=== PATIENT | female | born 1945 | race Caucasian/White ===

== ENCOUNTER 2019-09-05 20:48 | Inpatient (IN) | payer MEDICARE, OTHER, SELFPAY ==
--- NOTE | ~2019-09-05 | CT_ITS ---
EXAMINATION: CT abdomen pelvis w con DATE: 09/05/2019 23:16 INDICATION: Diarrhea. Abdominal pain. History of colitis. TECHNIQUE: Computed tomography (CT) of the abdomen and pelvis was performed with 100 cc Omnipaque 350 intravenous contrast. Automated exposure control and iterative reconstruction technique were employe d. Exam dose: 330.34 mGy-cm total exam DLP. COMPARISON: None. FINDINGS: There is mild discoid atelectasis in both lower lobes. No pulmonary consolidation. Normal heart size. No pericardial or pleural effusion. There are calcified hepatic and splenic granulomas consistent with old granulomatous disease. No hepatic, splenic, pancreatic, and adrenal or renal space-occupying mass lesion is evident. No renal mass lesion. No urinary tract calculus or hydroureteronephrosis. Normal caliber of the abdominal aorta, with atherosclerotic calcification. No abdominal aortic aneury sm or any apparent dissection. No intraperitoneal or retroperitoneal or pelvic mass lesion or adenopa thy or ascites. Shotty nonenlarged retroperitoneal lymph nodes and mildly prominent upper abdominal mesenteric lymph nodes, likely reactive. The appendix is not visualized. No evidence of appendicitis. The uterus and adnexal areas and urinary bladder are unremarkable. There is degenerative change at the apophyseal joints particularly in the lower lumbar and lumbosacra l area with associated grade 1 anterolisthesis at L4-5. Degenerative spurring of the lower thoracic s pine in particular and to a lesser extent at the lumbar spine. No suspicious osteolytic or osteoblast ic lesions. There are fluid levels in the colon, an abnormal finding in the absence of any recent enemas. There i s mild colonic wall thickening and pericolic fat stranding from the cecum to the distal transverse co vanesa, consistent with mild colitis. No pneumatosis or perforation or abscess. No significant ascites. No bowel obstruction or intraperitoneal free air is detected. 1.9 x 2.7 cm probably calcified stone is noted at the gallbladder neck. There is mild to moderate gal lbladder distention but the wall thickness appears within normal range. There is minimal if any peric holecystic fat stranding. No bile duct or pancreatic duct dilatation. IMPRESSION: Colitis Cholelithiasis Reviewed, dictated and finalized at [facility]. Reviewed, dictated and finalized at location A. IMPRESSION: Colitis Cholelithiasis
--- NOTE | ~2019-09-05 | XR_ITS ---
XR chest 1V portable DATE: 09/05/2019 23:17 INDICATION: Cough, fever TECHNIQUE: Portable AP chest on 09/05/2019 at 2315 hours COMPARISON: None FINDINGS: There is discoid atelectasis or scarring in both lung bases. The lungs otherwise appear sarah ar. No pleural effusion or pulmonary vascular congestion or pneumothorax. Heart size appears within n ormal range. Old fracture deformity of the proximal right humerus. There is bilateral excretion of contrast material by the kidneys. IMPRESSION: Bilateral basilar discoid atelectasis or scarring Reviewed, dictated and finalized at location A.
--- NOTE | ~2019-09-05 | XR_ITS ---
EXAMINATION: XR foot RT 2V INDICATION: Swelling and generalized pain of the right foot TECHNIQUE: Two views of the right foot are obtained. COMPARISON: None available FINDINGS: There is no fracture, dislocation, or subluxation. Dorsal and plantar calcaneal osteophytes are noted. There is mild osteoarthritis of the midfoot. IMPRESSION: 1. No acute osseous abnormality. Reviewed, dictated and finalized at location A.
--- NOTE | ~2019-09-05 | US_ITS ---
EXAMINATION: US venous doppler [facility] DATE: 09/08/2019 13:09 INDICATION: Lower limb swelling TECHNIQUE: Grayscale ultrasound images without and with compression and Doppler ultrasound images of the bilateral lower extremity veins were obtained. COMPARISON: None. FINDINGS: Noncompressible deep venous thrombosis below the right knee in the right soleal vein and one of the p aired peroneal veins. The visualized portions of right common femoral vein, profunda (deep) femoral v ein, femoral vein, popliteal vein, posterior tibial veins, gastrocnemius vein and greater saphenous v ein outflow are patent. Noncompressible deep venous thrombosis below the left knee in both the paired peroneal veins. The vis ualized portions of left common femoral vein, profunda femoral vein, femoral vein, popliteal vein, pe roneal veins, gastrocnemius vein and greater saphenous vein outflow are patent. IMPRESSION: 1. Bilateral [id number]-blub deep venous thrombosis in the right soleus vein and one of the paired ri ght peroneal veins and in both the paired left peroneal veins. Findings were discussed with Jessica dudley, the nurse caring for the patient, at 1:25 PM. Reviewed, dictated and finalized at location A. IMPRESSION: 1. Bilateral [id number]-[id number] deep venous thrombosis in the right soleus vein an d one of the paired right peroneal veins and in both the paired left peroneal v eins. Findings were discussed with Jessica Resendez, the nurse caring for the pat ient, at 1:25 PM.
--- NOTE | ~2019-09-05 | US_ITS ---
US right upper quadrant DATE: 09/07/2019 09:25 INDICATION: Abdominal pain for 4 months TECHNIQUE: Real-time imaging of liver, pancreas, gallbladder areas COMPARISON: 09/05/2019 CT abdomen pelvis FINDINGS: There is a 2.9 cm stone in the dependent aspect of the gallbladder, without shadowing. The gallbladder wall measures up to 2.3 mm, which is within normal limits. No pericholecystic abnormal fl uid collection. No hepatic or pancreatic space-occupying mass lesion is identified. Normal hepatic portal venous flow direction. No intrahepatic or extrahepatic bile duct dilatation is detected. The common bile duct measures 3.8 m m. IMPRESSION: Cholelithiasis Reviewed, dictated and finalized at [facility]. Reviewed, dictated and finalized at location A. IMPRESSION: Cholelithiasis
[2019-09-05 20:54] VITALS: BP 136/65; PULSE 99; RESP 18; TEMP 37.8; O2SAT 100
--- NOTE | 2019-09-05 22:11 | ED.GENADULT ---
HPI - General Adult General Chief complaint: Unspecified Stated complaint: abd pain History of Present Illness HPI narrative: Patient presents with her daughter for multiple complaints. First she complains that her right foot is swollen it was wrapped by the phytochemistry professor 4 days ago and they took off the wrapping for us to see here, and now it is less swollen and less tender there is no redness. She says she supposed to get a boot next week to help her walk. Second she complains of her fever 103.1 at home. She has had a dry cough for 3 or 4 months, it seems to have gotten worse since she was diagnosed with colitis 1 to 2 months ago. #3 she has diarrhea 3-4 bowel movements a day, despite the medicine the GI doctor has her on to control the colitis. There is no blood in her stool. She urinates when she has the diarrhea, but has no symptoms with the bladder. The pain in her abdomen is 8 out of 10 and is primarily beneath the waistline right to left. The pain is getting worse in the last month. Her appetite is poor and she is losing weight. Related Data Allergies Allergy/AdvReac Type Severity Reaction Status Date / Time No Known Allergies Allergy Verified 09/05/19 23:13 Review of Systems Review of Systems: Narrative: CONSTITUTIONAL: Denies chills, or sweats. EYES: Denies visual changes, redness, or discharge. ENT: Denies rhinorrhea, congestion, sore throat, or otalgia. CARDIOVASCULAR: Denies chest pain, palpitations, or edema. RESPIRATORY: Denies dyspnea. GASTROINTESTINAL: Denies nausea, vomiting GENITOURINARY: Denies dysuria or hematuria. SKIN: Denies rash or itching. MUSCULOSKELETAL: Denies back pain, joint pain, or myalgia.She does have right foot pain and swelling. NEUROLOGIC: Denies headache, numbness, or weakness. PSYCHIATRIC: Denies anxiety or depression. All systems reviewed & are unremarkable except as noted in HPI and below PMFSH Social History Social History (Updated 09/05/19 @ 22:15 by Jenna Davalos MD) Smoking status: Never smoker Alcohol intake: never Substance use: never Gender identity (if verbalized by the patient): Female Exam Narrative: Exam Narrative: GENERAL: Well-appearing, well-nourished, and in no acute distress. HEAD: Normocephalic, atraumatic. EYES: PERRLA and EOMI. ENT: Nares clear, no rhinorrhea or epistaxis. Mucous membranes moist. NECK: Supple. CHEST: Clear to auscultation. No respiratory distress. HEART: Regular rate and rhythm. No murmur heard. Normal peripheral pulses. ABDOMEN: Soft, nontender, nondistended, normal active bowel sounds. EXTREMITIES: Normal range of motion. Scant edema of the right foot, no redness, or lesions. Nontender. SKIN: Warm, dry, no rash. NEURO: No focal deficits. Alert and oriented x3. PSYCH: Normal mood and affect. Const: General: no acute distress and alert Orientation/consciousness: patient oriented x3 Course Reevaluation(s) Reevaluation #1: Went in to see the patient and her daughter, and explained about the new congestive heart failure diagnosis. She is very disappointed about that because she knows what it is. She is also disappointed to have been tested for COVID. The chest x-ray did not show pneumonia and I shared that good information with her. I suggested that she be admitted for the colitis since she is running a fever. I ordered the IV antibiotics and she agrees with the admission Date: 09/05/19 Time: 23:42 Consultations Consultation #1: Call Dr. schuster for admission for the colitis because there is fever with it also the COVID testing was done for the fever and the cough. Date: 09/05/19 Time: 23:40 Consultation #2: Dr. Dozier wants a GI consult specialist to be on the case for her to be transferred to her own application release manager. Her application release manager is in [place] and she is not very happy with him right now I suspect she will want a stay here. Date: 09/06/19 Time: 00:13 Vital Signs Vital signs: Vital Signs Temperature 100.0 F H 0
[2019-09-05] MEDS: SODIUM CHLORIDE 0.9% IV 1,000 ML 999 ML IV CONT (22:30)
[2019-09-05] MEDS: MORPHINE SULFATE 2 MG/ML INJ IV PUSH (22:30)
[2019-09-05 22:34] LABS: Basophils Absolute Auto 0.1 K/mm3 (0.0-0.1); Basophils Percent Auto 0.7 % (0.2-1.2); Eosinophils Percent Auto 0.3 % (0-4.4); Hematocrit 32.5 % (37.0-47.0); Hemoglobin 9.8 g/dL (12.0-15.0); Immature Granulocyte Absolute 0.04 K/mm3 (0.00-0.031); Immature Granulocyte Percent A 0.5 % (0-0.5); Lymphocytes Absolute Auto 0.98 K/mm3 (0.9-3.2); Lymphocytes Percent Auto 12.9 % (18.3-44.2); Mean Corpuscular HGB Conc 30.2 g/dl (32-36); Mean Corpuscular Hemoglobin 24.2 pg (26-34); Mean Corpuscular Volume 80.2 fl (80-100); Mean Platelet Volume 8.6 fl (7.4-10.4); Monocytes Absolute Auto 0.6 K/mm3 (0.1-0.6); Monocytes Percent Auto 7.3 % (2.6-8.5); Neutrophils Absolute Auto 5.9 K/mm3 (1.3-6.7); Neutrophils Percent Auto 78.3 % (45.5-73.1); Platelet Count Result 524 k/mm3 (150-375); Red Blood Count 4.05 M/mm3 (4.2-5.4); Red Cell Distribution Width 14.1 % (11.5-14.5); White Blood Count 7.6 K/mm3 (4.5-10.0)
[2019-09-05 22:45] LABS: Lactic Acid 0.8 mmol/L (0.7-2.1)
[2019-09-05 22:46] LABS: Alanine Aminotransferase 12 U/L (4-35); Albumin Level 3.6 g/dL (3.5-5.1); Alkaline Phosphatase 102 U/L (38-126); Aspartate Amino Transferase 22 U/L (14-36); Bilirubin,Total 0.5 mg/dL (0.2-1.3); Blood Urea Nitrogen 10 mg/dL (7-17); Calcium 7.8 mg/dL (8.4-10.2); Carbon Dioxide 26 mmol/L (22-30); Chloride 98 mmol/L (98-107); Estimated CRCL calculation 44 ml/min; Estimated Glomerular Filt Rate > 60; Glucose 115 mg/dL (65-105); Potassium 3.6 mmol/L (3.4-5.0); Sodium 130 mmol/L (137-145)
[2019-09-05 22:49] VITALS: BP 127/57; PULSE 110; RESP 23; TEMP 39.1; O2SAT 100
[2019-09-05 22:54] LABS: NT Pro B Type Natriuretic Pept 579 PG/ML (5-100)
[2019-09-05] MEDS: ACETAMINOPHEN 325 MG TABLET 650 MG PO (23:24)
[2019-09-05 23:41] VITALS: BP 139/93; PULSE 120; RESP 24; O2SAT 100
[2019-09-05] MEDS: metroNIDAZOLE 500 MG/ISO 100ML 500 MG/100 ML BAG 100 MG IVPB (23:59)
[2019-09-06] VITALS (9 sets, daily range): BP systolic 105–118; BP diastolic 48–53; PULSE 82–101; RESP 16–21; TEMP 36.6–38.7; O2SAT 96–99; BMI 22.9
[2019-09-06] MEDS: CIPROFLOXACIN 400 MG/D5W 200ML 200 ML 200 MG IVPB ×3 (00:52→22:05)
--- NOTE | 2019-09-06 01:49 | ADMGEN ---
This patient, Yelitza Álvarez, was admitted to 3 [facility] Surg Room 327-01. Patient/family oriented to hospital policies and general routines including ID bracelet, bed and alarms, visiting hours, pain management, procedures, bathroom and other care routines, personal items, smoking policy, room service/diet, and visiting hours. Valuables list has been completed. Information on how to activate the Rapid Response Team has been discussed. Patient/Family are encouraged to report perceived risks to care and to ask questions if they do not understand what they are told or what they should do.
[2019-09-06] MEDS: metroNIDAZOLE 500 MG/ISO 100ML 500 MG/100 ML BAG 100 MG IVPB ×3 (06:28→23:51)
[2019-09-06 07:46] LABS: Add Urine Microscopic? YES; Appearance Urine Clear (Clear); Bilirubin Urine Negative (Negative); Blood Urine Negative (Negative); Color Urine Yellow (Yellow); Glucose Urine UA Negative (Negative); Ketones Urine Negative (Negative); Leukocyte Esterase Ur Negative LEU/UL (Negative); Mucus Urine Rare /lpf; Nitrate Urine Negative (Negative); Protein Urine 1+ mg/dL (Negative); RBC Urine 0-2 /hpf (0-2); Squamous Epithelial Cell Urine Few /hpf (Few); Urobilinogen Urine Negative mg/dL (<2.0); WBC Urine 0-3 /hpf
[2019-09-06 07:51] LABS: Specific Grav Ur 1.055 (1.001-1.035)
--- NOTE | 2019-09-06 08:27 | PM.IMHP ---
H&P: HPI History of Present Illness Chief complaint: colitis Narrative: Yelitza Álvarez is a 74 year old female with a PMH significant for ulcerative colitis, RAUL, and CKD3 who presented to the ED on 09/05/19 from home with complaints of right foot swelling, fever, diarrhea, and dry cough. She reports that she has had a dry cough ongoing for 3-4 months now which has worsened the past week. She noted that she had a fever of 103F at home 2 days ago. Additionally, she complains of diarrhea ongoing for 2 days and has had 1 episode of diarrhea today. She is having large volume brown stools with foul odor. She denies melena or hematochezia. She has associated abdominal cramping and bloating. She also has had 2 episodes of vomiting today after attempting clear liquids. She was recently diagnosed with UC 1 month ago after a colonoscopy and biopsy performed by her GI Dr. Martines who practices in [place]. She believes she has lost approximately 10-12 pounds in the past 1-2 months unintentionally. Regarding her right foot, she complained of swelling for approximately 1-2 weeks with pain that felt like a sledgehammer hitting her foot. She was evaluated by a gourmet coffee attendant who recommended she keep it wrapped and she tells me she was going to begin wearing a walking boot. This foot pain has caused her to become more weak and fatigued and she has now been using a walker around the house. She denies chest pain, SOB, or orthopnea. She is able to climb a flight of stairs without difficulty. She denies any additional arthralgia or myalgia. Denies headache, confusion, congestion dysphagia, decreased appetite, bleeding, bruising, dysuria, or hematuria. Review of Systems Review of Systems: Narrative: A 12 point review of systems was performed with pertinent positives and negatives as per HPI. [facility] Past Medical History Medical History (Updated 09/06/19 @ 16:42 by Charline Maravilla PA-C) Chronic kidney disease GERD (gastroesophageal reflux disease) Hyperlipidemia Hyponatremia Iron deficiency anemia Mild intermittent asthma Nausea and vomiting in adult Obstructive sleep apnea Osteoporosis Ulcerative colitis Surgical History Surgical History (Updated 09/06/19 @ 12:11 by Charline Maravilla PA-C) H/O shoulder surgery Right shoulder History of knee replacement Bilateral History of tonsillectomy History of tubal ligation Family History Family History (Updated 09/06/19 @ 16:20 by Charline Maravilla PA-C) Mother , 89 Breast cancer Father Acute myocardial infarction Daughter Crohn's disease Social History Social History (Updated 09/06/19 @ 12:13 by Charline Maravilla PA-C) Social History: Ms. Álvarez lives alone at home with her 2 cats. She has 5 children. She drives and is independent in her ADLs. She designates her daughter, Nancy, as her surrogate decision maker. She would like to be a full code. Smoking packs per day: 0.5 Smoking cigarettes per day: 10.0 Years smoked: 12 Smoking pack-years: 6.00 Smoking status: Former smoker Tobacco type: cigarettes Alcohol intake: former Alcohol use details: Former social alcohol use Substance use: never Living arrangements: alone Gender identity (if verbalized by the patient): Female Spiritual care concerns: No Agree to blood products: Yes Meds Home Medications and Allergies Home Medications Medication Instructions Recorded Confirmed Type albuterol sulfate [ProAir HFA] 2 puff INHALATION QID PRN 09/06/19 09/06/19 History atorvastatin 20 mg PO HS 09/06/19 09/06/19 History ergocalciferol (vitamin D2) 50,000 unit PO WEEKLY 09/06/19 09/06/19 History [Vitamin D2] lifitegrast [Xiidra] 1 drp OPHTHALMIC (EYE) Q12H 09/06/19 09/06/19 History lisinopril 20 mg PO DAILY 09/06/19 09/06/19 History mesalamine 1.2 g PO ACHS 09/06/19 09/06/19 History omeprazole 20 mg PO DAILY 09/06/19 09/06/19 History Allergies Allergy/AdvReac Type Severity Reaction St
[2019-09-06 10:47] LABS: Basophils Absolute Auto 0.1 K/mm3 (0.0-0.1); Basophils Percent Auto 0.8 % (0.2-1.2); Eosinophils Percent Auto 0.1 % (0-4.4); Hemoglobin 8.5 g/dL (12.0-15.0); Immature Granulocyte Absolute 0.05 K/mm3 (0.00-0.031); Immature Granulocyte Percent A 0.6 % (0-0.5); Lymphocytes Absolute Auto 1.37 K/mm3 (0.9-3.2); Lymphocytes Percent Auto 15.3 % (18.3-44.2); Mean Corpuscular HGB Conc 30.4 g/dl (32-36); Mean Corpuscular Hemoglobin 24.2 pg (26-34); Mean Corpuscular Volume 79.8 fl (80-100); Mean Platelet Volume 8.2 fl (7.4-10.4); Monocytes Absolute Auto 0.7 K/mm3 (0.1-0.6); Monocytes Percent Auto 7.3 % (2.6-8.5); Neutrophils Absolute Auto 6.8 K/mm3 (1.3-6.7); Neutrophils Percent Auto 75.9 % (45.5-73.1); Platelet Count Result 414 k/mm3 (150-375); Red Blood Count 3.51 M/mm3 (4.2-5.4); Red Cell Distribution Width 14.3 % (11.5-14.5)
[2019-09-06 11:30] LABS: Alanine Aminotransferase 11 U/L (4-35); Albumin Level 2.9 g/dL (3.5-5.1); Alkaline Phosphatase 67 U/L (38-126); Aspartate Amino Transferase 15 U/L (14-36); Bilirubin,Total 0.5 mg/dL (0.2-1.3); Blood Urea Nitrogen 9 mg/dL (7-17); CRP 15.2 mg/dL (<1.0); Calcium 6.8 mg/dL (8.4-10.2); Carbon Dioxide 24 mmol/L (22-30); Chloride 99 mmol/L (98-107); Creatine Kinase < 20 U/L (30-135); Estimated CRCL calculation 49 ml/min; Estimated Glomerular Filt Rate > 60; Glucose 124 mg/dL (65-105); Lactate Dehydrogenase 260 U/L (313-618); Potassium 3.6 mmol/L (3.4-5.0); Sodium 131 mmol/L (137-145)
[2019-09-06 11:51] LABS: Ovalocytes 1+ (NORMAL); Platelet Estimate Adequate (Adequate)
--- NOTE | 2019-09-06 12:25 | ECG_ITS ---
Measurements Intervals [place] Rate: 104 P: 39 MI: 139 QRS: 1 QRSD: 79 T: 33 QT: 334 QTc: 440 Interpretive Statements SINUS TACHYCARDIA BASELINE ARTIFACT- V3 BORDERLINE ECG Electronically Signed On 09-06-2019 13:39:00 CDT by Boris Romero D.O.
[2019-09-06 12:51] LABS: Uric Acid 3.6 mg/dL (2.5-7.5)
[2019-09-06] MEDS: PROMETHAZINE HCL 25 MG/ML AMPUL 12.5 MG IV PUSH (12:52)
[2019-09-06] MEDS: SODIUM CHLORIDE 0.9% IV 1,000 ML 70 ML IV CONT (12:52)
--- NOTE | 2019-09-06 13:31 | WPDGICN ---
Assessment and Plan Assessment and plan (1) Colitis: Code(s): K52.9 - Noninfective gastroenteritis and colitis, unspecified Status: Acute Assessment and Plan: she was diagnosed with UC a month ago, now she is more symptomatic. Stool sample pending, continue with iv antibiotics, add iv steroids for possible flare. Also need to rule out COVID given fever and respiratory symptoms, pending result. get records from her GI doctor patient has never used immunomodulators or biologics for UC, she prefers to hold off (daughter with Crohn's disease on stelara) (2) Fever: Qualifiers: Fever type: unspecified Qualified Code(s): R50.9 - Fever, unspecified Code(s): R50.9 - Fever, unspecified Status: Acute (3) Persistent dry cough: Code(s): R05 - Cough Status: Acute (4) Iron deficiency anemia: Qualifiers: Iron deficiency anemia type: unspecified iron deficiency Qualified Code(s): D50.9 - Iron deficiency anemia, unspecified Code(s): D50.9 - Iron deficiency anemia, unspecified Status: Acute Assessment and Plan: no signs of bleeding andcould be from acute on chronic disease, continue to monitor (5) Suspected COVID-19 virus infection: Code(s): R68.89 - Other general symptoms and signs Status: Acute (6) Chronic kidney disease: Qualifiers: Chronic kidney disease stage: stage 3 (moderate) Qualified Code(s): N18.3 - Chronic kidney disease, stage 3 (moderate) Code(s): N18.9 - Chronic kidney disease, unspecified Status: Acute Assessment and Plan: monitor renal function, supportive care, creatinine 0.8 (7) Hyponatremia: Code(s): E87.1 - Hypo-osmolality and hyponatremia Status: Acute (8) Nausea and vomiting in adult: Code(s): R11.2 - Nausea with vomiting, unspecified Status: Acute GI Consult Note Consult date/time: 09/06/19 13:31 Reason for consult: colitis, diarrhea, n/v, fever HPI: Yelitza Álvarez is a 74 year old female with past medical history of ulcerative colitis diagnosed about 1 month ago by a nuclear medicine officer in [facility] with colonoscopy and bx, started on mesalamine without much of improvement, also RAUL, and CKD3 who came to ED with right foot swelling, worsening diarrhea (ongoing since early this year but worse recently, no bleeding) and fever for 2 days up to 103F. She also has this dry cough for several weeks. ER evaluation showed colitis, also cholelithiasis with mild-moderate distension of GB. She was given antibitiocs, stool sample pending. Noted hb 9, normal wbc with platelets 450, elevated crp 15, normal liver enzymes. She had vomiting after tried clear liquid diet, still feels sick and persistent diarrhea. Her daughter has Crohn's [facility] Review of Systems Constitutional: Constitutional: Reports chills, Reports fatigue, Reports fever(s) and Reports lethargy Eyes: Eyes: Denies blurry vision ENT: Reports Normal hearing present, Denies headache(s) and Denies neck pain Cardiovascular: Cardiovascular: Denies chest pain and Denies dyspnea Respiratory: Respiratory: Reports cough Gastrointestinal: Gastrointestinal: Reports abdominal pain, Reports diarrhea and Reports nausea Genitourinary: Genitourinary: Denies dysuria Musculoskeletal: Musculoskeletal: Denies neck pain Integumentary/Breasts: Skin/Breast: Denies dry skin Neurologic: Reports Normal hearing present, Denies confusion and Denies weakness Psychiatric: Psychiatric: Denies anxiety Endocrine: Endocrine: Denies change in body appearance Hematologic/Lymphatic: Hematologic/Lymphatic: Denies easy bleeding Allergic/Immunologic: Allergic/Immunologic: Denies urticaria PMFSH Past Medical History Medical History (Updated 09/06/19 @ 13:48 by Garcia Otoole MD) Chronic kidney disease GERD (gastroesophageal reflux disease) Hyperlipidemia Hyponatremia Iron deficiency anemia Mild intermittent asthm
[2019-09-06 13:55] LABS: SARS-CoV-2 RNA PCR Negative
--- NOTE | 2019-09-06 14:00 | PC.NURSE ---
Covid testing negative - isolation dced after reviewed with Opal Lino and notified.
--- NOTE | 2019-09-06 14:25 | PC.NURSE ---
Notified [facility] that patient is negative for COVID. No new orders were obtained.
[2019-09-06] MEDS: methylPREDNISolone SOD SUCC 40 MG VIAL IV PUSH ×2 (14:45→21:49)
[2019-09-06] MEDS: ACETAMINOPHEN 325 MG TABLET 650 MG PO (18:23)
[2019-09-06 19:30] LABS: Glucose Point of Care 91 (65-105)
[2019-09-06 21:32] LABS: IFOB Positive Control Positive; Immunochemical Fecal Occult Bl Negative (N)
[2019-09-06] MEDS: ATORVASTATIN 20 MG TABLET PO (21:49)
[2019-09-07] VITALS (8 sets, daily range): BP systolic 103–149; BP diastolic 55–72; PULSE 72–113; RESP 16–24; TEMP 36.2–36.9; O2SAT 95–100
[2019-09-07 00:35] LABS: Glucose Point of Care 153 (65-105)
[2019-09-07] MEDS: SODIUM CHLORIDE 0.9% IV 1,000 ML 70 ML IV CONT (06:02)
[2019-09-07 06:30] LABS: Hematocrit 28.5 % (37.0-47.0); Hemoglobin 8.7 g/dL (12.0-15.0); Immature Granulocyte Absolute 0.04 K/mm3 (0.00-0.031); Immature Granulocyte Percent A 0.7 % (0-0.5); Lymphocytes Absolute Auto 0.84 K/mm3 (0.9-3.2); Lymphocytes Percent Auto 15.7 % (18.3-44.2); Mean Corpuscular HGB Conc 30.5 g/dl (32-36); Mean Corpuscular Hemoglobin 24.2 pg (26-34); Mean Corpuscular Volume 79.2 fl (80-100); Mean Platelet Volume 8.1 fl (7.4-10.4); Monocytes Absolute Auto 0.2 K/mm3 (0.1-0.6); Monocytes Percent Auto 3.2 % (2.6-8.5); Neutrophils Absolute Auto 4.3 K/mm3 (1.3-6.7); Neutrophils Percent Auto 80.4 % (45.5-73.1); Platelet Count Result 393 k/mm3 (150-375); Red Cell Distribution Width 14.3 % (11.5-14.5); White Blood Count 5.4 K/mm3 (4.5-10.0)
[2019-09-07] MEDS: methylPREDNISolone SOD SUCC 40 MG VIAL IV PUSH ×3 (06:39→22:53)
[2019-09-07 06:47] LABS: Alanine Aminotransferase 9 U/L (4-35); Albumin Level 2.9 g/dL (3.5-5.1); Alkaline Phosphatase 68 U/L (38-126); Aspartate Amino Transferase 14 U/L (14-36); Bilirubin,Total 0.3 mg/dL (0.2-1.3); Blood Urea Nitrogen 11 mg/dL (7-17); Calcium 7.1 mg/dL (8.4-10.2); Carbon Dioxide 27 mmol/L (22-30); Chloride 104 mmol/L (98-107); Estimated CRCL calculation 49 ml/min; Estimated Glomerular Filt Rate > 60; Glucose 131 mg/dL (65-105); Potassium 4.2 mmol/L (3.4-5.0); Sodium 138 mmol/L (137-145)
[2019-09-07] MEDS: metroNIDAZOLE 500 MG/ISO 100ML 500 MG/100 ML BAG 100 MG IVPB ×3 (07:31→22:53)
[2019-09-07 07:39] LABS: Glucose Point of Care 123 (65-105)
[2019-09-07 07:59] LABS: Anisocytosis 1+ (NORMAL); Hypochromasia 1+ (NORMAL); Ovalocytes 1+ (NORMAL)
[2019-09-07] MEDS: CIPROFLOXACIN 400 MG/D5W 200ML 200 ML 200 MG IVPB ×2 (09:34→21:33)
[2019-09-07] MEDS: FAMOTIDINE 20 MG/2 ML VIAL IV PUSH ×2 (09:35→21:33)
[2019-09-07] MEDS: ENOXAPARIN 40 MG/0.4 ML SYRINGE SUB-Q (09:35)
--- NOTE | 2019-09-07 12:26 | WPDGIPROGNO ---
Progress Note: A&P Assessment and Plan (1) Ulcerative colitis: Qualifiers: Ulcerative colitis location: unspecified ulcerative colitis location Digestive disease complication type: unspecified complication Qualified Code(s): K51.919 - Ulcerative colitis, unspecified with unspecified complications Code(s): K51.90 - Ulcerative colitis, unspecified, without complications Status: Acute Assessment and Plan: presentation consistent with UC flare, she is doing much better after I added iv steroids. Most likely she will need slow taper of steroids continue with antibiotics, stool sample result pending blood cx ngtd will get TPMT activity- she may need imuran, patient says that has been on mesalamine 1.2g x4 daily and still symptomatic. She may even need biologics therefore I will check also serology for HBV and TB. Another consideration could be entyvio. Interestingly her daughter has Crohn's that required surgery, failed remicade and humira and now she is on stelara. pending records from recent colonoscopy about 1 month ago she would like to establish care with me after she leaves the hospital insted of [place] (2) Nausea and vomiting in adult: Code(s): R11.2 - Nausea with vomiting, unspecified Status: Acute Assessment and Plan: resolved, much better ok to advance diet (3) Iron deficiency anemia: Qualifiers: Iron deficiency anemia type: unspecified iron deficiency Qualified Code(s): D50.9 - Iron deficiency anemia, unspecified Code(s): D50.9 - Iron deficiency anemia, unspecified Status: Acute (4) Chronic kidney disease: Qualifiers: Chronic kidney disease stage: stage 3 (moderate) Qualified Code(s): N18.3 - Chronic kidney disease, stage 3 (moderate) Code(s): N18.9 - Chronic kidney disease, unspecified Status: Acute Assessment and Plan: renal function stable (5) Fever: Qualifiers: Fever type: unspecified Qualified Code(s): R50.9 - Fever, unspecified Code(s): R50.9 - Fever, unspecified Status: Acute Assessment and Plan: no more for 24 hours (6) Cholelithiasis: Qualifiers: Cholelithiasis location: gallbladder Cholecystitis presence: without cholecystitis Biliary obstruction: without biliary obstruction Qualified Code(s): K80.20 - Calculus of gallbladder without cholecystitis without obstruction Code(s): K80.20 - Calculus of gallbladder without cholecystitis without obstruction Status: Acute Assessment and Plan: large stone but normal GB otherwise, no cholecystitis, no edema, no ruq pain and most likely UC is cause of presentation. Probably she can surgeon as outpatient Subjective Date/time seen: 09/07/19 12:26 Interval history: today she is doing much better with less diarrnea and no more nausea, good spirits. COVID-19 negative. Afebrile for 24 hours ago Review of Systems Review of Systems: All systems reviewed & are unremarkable except as noted in HPI and below Exam Const: General: comfortable and no acute distress HENMT: General nose exam: Normal nares present Eyes: General: appearance normal, both eyes and all related structures Neck: Neck: no JVD Resp: Auscultation: clear to auscultation bilaterally Cardio: Rate: regular rate Rhythm: regular rhythm GI: Inspection: non-distended GI Palp: Yes Soft to palpation Skin: General skin exam: normal color Neuro: General: gait normal Speech: normal speech Extrem: General: normal to inspection Psych: Mental Status: mental status grossly normal Objective Data Vital Signs Vital Signs: Vital Signs - 24 hr 09/06/19 16:00 09/06/19 18:23 09/06/19 20:07 Temperature 99.5 F 99.8 F H 98.4 F Pulse Rate 101 H Respiratory Rate 18 Blood Pressure 113/48 L Pulse Oximetry 97 09/06/19 22:00 09/06/19 22:20 09/07/19 02:00 Temperature 97.8 F 97.3 F L Pulse Rate 85 82
--- NOTE | 2019-09-07 13:00 | ECHO_ITS ---
Patient Info Name: Yelitza Álvarez Age: 74 years : 1945 Gender: Female Ht: 66 in Wt: 143 lbs BSA: 1.74 m2 HR: 105 bpm BP: 130 / 63 mmHg Heart Rhythm: Tachycardia Technical Quality: Good Exam Date: 09/07/2019 2:01 PM Exam Location: [facility] Patient Status: Inpatient Admit Date: 09/07/2019 Staff Ordering Physician: Anais Marcelo PA-C Spring Assembler: Ronald Mancilla RDCS Attending Provider: Anais Marcelo PA-C Referring Physician: Fozia GARCIA; Exam Type: CA echo doppler color flow Study Info Indications I50.9 - Heart failure, unspecified Complete two-dimensional, color flow and Doppler transthoracic echocardiogram is performed. Strain analysis performed. History/Risk Factors Elevated BNP w/ concern for CHF: Fever, CKD3. Summary 1. Left ventricular chamber dimension is normal. 2. Left ventricular systolic function is normal, estimated at 60-65%. 3. The left ventricular diastolic function is grade I diastolic dysfunction. 4. E/e' 8 is minimally elevated. 5. Global longitudinal strain is normal at -19.4%. 6. Left atrial chamber dimension is mildly enlarged. 7. There is trace tricuspid valve regurgitation. 8. Moderate pulmonary hypertension, estimated pulmonary arterial systolic pressure is 51 mmHg. Left Ventricle E/e' 8 is minimally elevated. Global longitudinal strain is normal at -19.4%. Left ventricular chamber dimension is normal. Left ventricular systolic function is normal, estimated at 60-65%. The left ventricular diastolic function is grade I diastolic dysfunction. Right Ventricle Right ventricular chamber dimension is normal. Right ventricular systolic function is normal. Left Atria Left atrial chamber dimension is mildly enlarged. Right Atria Right atrial chamber dimension is normal. Aortic Valve The aortic valve is trileaflet. There is no aortic valve stenosis. There is no aortic valve regurgitation. Pulmonic Valve There is trace pulmonic regurgitation. Mitral Valve There is no mitral valve stenosis. There is no mitral valve regurgitation. Tricuspid Valve There is trace tricuspid valve regurgitation. Moderate pulmonary hypertension, estimated pulmonary arterial systolic pressure is 51 mmHg. Pericardium/Pleural There is no pericardial effusion. Inferior Vena Cava Normal inferior vena cava with >50% collapse upon inspiration consistent with normal right atrial pressure, 5 mmHg. Aorta The aortic root size at the sinus of Valsalva is normal. Left Ventricular Outflow Tract Name Value Normal LVOT 2D LVOT Diameter 2.0 cm LVOT Doppler LVOT Peak Gradient 12 mmHg LVOT Mean Gradient 5 mmHg LVOT VTI 26 cm LVOT VTI/AV VTI Ratio 0.9 LVOT Stroke Volume 81 ml LVOT CO 9.1 l/min LVOT CI 5.2 l/min/m2 Mitral Valve Name
--- NOTE | 2019-09-07 13:04 | PM.IMPN ---
Progress Note: A&P Assessment and Plan (1) Ulcerative colitis: Qualifiers: Ulcerative colitis location: unspecified ulcerative colitis location Digestive disease complication type: unspecified complication Qualified Code(s): K51.919 - Ulcerative colitis, unspecified with unspecified complications Code(s): K51.90 - Ulcerative colitis, unspecified, without complications Status: Acute Assessment and Plan: The patient's clinical picture suggests ulcerative colitis. Dr. Wagoner is on board. Her sx have improved significantly with IV steroids. Plan for follow-up with Dr. Wagoner outpatient Pt is currently on IV steroids with significant improvement and will likely need slow steroid taper per Dr. Wagoner She has remained symptomatic despite mesalamine so she will have additional lab testing in consideration for imuran vs entyvio Records are pending from her previous colonoscopy (2) Colitis: Code(s): K52.9 - Noninfective gastroenteritis and colitis, unspecified Status: Acute Assessment and Plan: She was diagnosed with ulcerative colitis approximately 1 month ago by biopsy. Colitis evident on CT. Her clinical picture suggests a UC flare. Her sx have improved significantly with the addition of IV steroids. IFOB was negative. Stool cultures were negative for cryptosporidium and giardia. GDH antigen was detected but toxin A and B were not detected. C. diff PCR testing is pending. Campylobacter, salmonella/shigella, and Ecoli 0157 are pending. WBC is 5.4. IFOB was negative. Blood cultures reveal NGTD. Dr. Wagoner is on board and started IV steroids yesterday. The pateint's symptoms have improved significantly. Continue Cipro and Flagyl empirically Await final stool cultures including C. diff PCR as GDH antigen was detected. (3) CHF with unknown LVEF: Code(s): I50.9 - Heart failure, unspecified Status: Acute Assessment and Plan: At presentation, there was concern for CHF, possibly given prolonged dry cough. CXR reveals no cardiomegaly. BNP is elevated at 579. The pt has no other sx to suggest CHF but she is very concerned about this diagnosis and has requested confirmatory testing. Will order echo (4) Obstructive sleep apnea: Code(s): G47.33 - Obstructive sleep apnea (adult) (pediatric) Status: Acute Assessment and Plan: Patient has a history of sleep apnea and uses CPAP regularly. 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 Hanson. Her baseline is unknown. Cr is stable at 0.8 today. Continue to monitor kidney function Renally dose medications and avoid nephrotoxic agents (6) Foot pain, right: Code(s): M79.671 - Pain in right foot Status: Acute Assessment and Plan: Notes right foot swelling and pain for 1-2 weeks. Evaluated by veterinary toxicologist and wrapped for compression to reduce inflammation. Denies trauma or injury. Right foot xray revealed mild osteoarthritis of the midfoot without fracture, disclocation, or subluxation. Dorsal and plantar calcaneal osteophytes were present. Her pain and swelling improved significantly today. She is able to bear weight without pain. Uric acid was WNL at 3.6 today. I suspect that her pain was due to osteoarthritis. Continue PT/OT. Recommendations are greatly appreciated. Continue follow-up with podiatry Continue to monitor (7) Cholelithiasis: Qualifiers: Cholelithiasis location: gallbladder Cholecystitis presence: without cholecystitis Biliary obstruction: without biliary obstruction Qualified Code(s
[2019-09-07 15:04] LABS: Hepatitis B Surface Antigen Negative (Negative)
[2019-09-07 15:22] LABS: Hepatitis B Surface Anti Res Negative
[2019-09-07] MEDS: ATORVASTATIN 20 MG TABLET PO (21:33)
[2019-09-08] VITALS (8 sets, daily range): BP systolic 132–152; BP diastolic 63–75; PULSE 61–88; RESP 16–22; TEMP 36.2–36.6; O2SAT 97–100
[2019-09-08] MEDS: metroNIDAZOLE 500 MG/ISO 100ML 500 MG/100 ML BAG 100 MG IVPB ×3 (06:02→21:59)
[2019-09-08] MEDS: methylPREDNISolone SOD SUCC 40 MG VIAL IV PUSH ×3 (06:02→21:59)
[2019-09-08 06:38] LABS: Basophils Percent Auto 0.2 % (0.2-1.2); Hematocrit 27.3 % (37.0-47.0); Hemoglobin 8.4 g/dL (12.0-15.0); Immature Granulocyte Absolute 0.06 K/mm3 (0.00-0.031); Immature Granulocyte Percent A 0.9 % (0-0.5); Lymphocytes Absolute Auto 0.89 K/mm3 (0.9-3.2); Lymphocytes Percent Auto 13.6 % (18.3-44.2); Mean Corpuscular HGB Conc 30.8 g/dl (32-36); Monocytes Absolute Auto 0.2 K/mm3 (0.1-0.6); Monocytes Percent Auto 3.7 % (2.6-8.5); Neutrophils Absolute Auto 5.4 K/mm3 (1.3-6.7); Neutrophils Percent Auto 81.6 % (45.5-73.1); Platelet Count Result 465 k/mm3 (150-375); Red Cell Distribution Width 14.2 % (11.5-14.5); White Blood Count 6.6 K/mm3 (4.5-10.0)
[2019-09-08 06:53] LABS: Alanine Aminotransferase 10 U/L (4-35); Albumin Level 2.7 g/dL (3.5-5.1); Alkaline Phosphatase 61 U/L (38-126); Aspartate Amino Transferase 14 U/L (14-36); Bilirubin,Total 0.2 mg/dL (0.2-1.3); Blood Urea Nitrogen 13 mg/dL (7-17); Calcium 7.1 mg/dL (8.4-10.2); Carbon Dioxide 25 mmol/L (22-30); Chloride 105 mmol/L (98-107); Estimated CRCL calculation 49 ml/min; Estimated Glomerular Filt Rate > 60; Glucose 135 mg/dL (65-105); Magnesium 2.3 mg/dL (1.6-2.3); Phosphorus 2.5 mg/dL (2.5-4.5); Potassium 3.6 mmol/L (3.4-5.0); Sodium 135 mmol/L (137-145)
[2019-09-08 07:23] LABS: Hypochromasia 1+ (NORMAL); Ovalocytes 1+ (NORMAL); Platelet Estimate Adequate (Adequate)
[2019-09-08 08:00] LABS: Iron 22 ug/dL (37-170)
[2019-09-08 08:03] LABS: Transferrin 129 mg/dL (206-381)
[2019-09-08] MEDS: CIPROFLOXACIN 400 MG/D5W 200ML 200 ML 200 MG IVPB ×2 (08:05→20:10)
[2019-09-08] MEDS: ENOXAPARIN 40 MG/0.4 ML SYRINGE SUB-Q (08:05)
[2019-09-08] MEDS: FAMOTIDINE 20 MG/2 ML VIAL IV PUSH ×2 (08:06→20:10)
[2019-09-08 08:09] LABS: Percent Iron Saturation 11 % (20-50)
[2019-09-08] MEDS: ACETAMINOPHEN 325 MG TABLET 650 MG PO (09:21)
--- NOTE | 2019-09-08 10:21 | WPDGIPROGNO ---
Progress Note: A&P Assessment and Plan (1) Ulcerative colitis: Qualifiers: Ulcerative colitis location: unspecified ulcerative colitis location Digestive disease complication type: unspecified complication Qualified Code(s): K51.919 - Ulcerative colitis, unspecified with unspecified complications Code(s): K51.90 - Ulcerative colitis, unspecified, without complications Status: Acute Assessment and Plan: afebrile for 2 days, better with iv steroids- probably tomorrow can switch to oral prednisone and then slow taper, also on oral abx. awaiting TPMT activity enzyme- if normal then a possibility is to start imuran, she took mesalamine for 1 month and did not work she is also thinking about using iv entyvio as biologic (we will need to submit paperwork to get approval from insurance)- also waiting for colonoscopy and path report from her former GI doctor (2) Nausea and vomiting in adult: Code(s): R11.2 - Nausea with vomiting, unspecified Status: Acute Assessment and Plan: resolved, tolerating diet (3) Iron deficiency anemia: Qualifiers: Iron deficiency anemia type: unspecified iron deficiency Qualified Code(s): D50.9 - Iron deficiency anemia, unspecified Code(s): D50.9 - Iron deficiency anemia, unspecified Status: Acute (4) Fever: Qualifiers: Fever type: unspecified Qualified Code(s): R50.9 - Fever, unspecified Code(s): R50.9 - Fever, unspecified Status: Acute (5) Cholelithiasis: Qualifiers: Cholelithiasis location: gallbladder Cholecystitis presence: without cholecystitis Biliary obstruction: without biliary obstruction Qualified Code(s): K80.20 - Calculus of gallbladder without cholecystitis without obstruction Code(s): K80.20 - Calculus of gallbladder without cholecystitis without obstruction Status: Acute Subjective Date/time seen: 09/08/19 10:21 Interval history: still with pain in foot, diarrhea better, had some abdominal pain earlier today Review of Systems Review of Systems: All systems reviewed & are unremarkable except as noted in HPI and below Exam Const: General: comfortable and no acute distress HENMT: General nose exam: Normal nares present Eyes: General: appearance normal, both eyes and all related structures Neck: Neck: no JVD Resp: Auscultation: clear to auscultation bilaterally Cardio: Rate: regular rate Rhythm: regular rhythm GI: Inspection: non-distended GI Palp: Yes Soft to palpation Skin: General skin exam: normal color Neuro: General: gait normal Speech: normal speech Extrem: General: normal to inspection Psych: Mental Status: mental status grossly normal Objective Data Vital Signs Vital Signs: Vital Signs - 24 hr 09/07/19 14:00 09/07/19 18:00 09/07/19 21:34 Temperature 98.4 F 98.2 F Pulse Rate 113 H 92 90 Respiratory Rate 18 16 24 H Blood Pressure 149/65 H 142/72 H Pulse Oximetry 99 100 98 09/07/19 22:00 09/08/19 01:31 09/08/19 02:00 Temperature 98.3 F 97.4 F L Pulse Rate 89 74 80 Respiratory Rate 18 22 H 18 Blood Pressure 113/58 L 141/68 H Pulse Oximetry 100 97 99 09/08/19 06:00 Temperature 97.8 F Pulse Rate 84 Respiratory Rate 18 Blood Pressure 137/65 Pulse Oximetry 100 Intake/Output Intake/Output: Intake & Output 09/05/19 09/06/19 09/07/19 09/08/19 23:59 23:59 23:59 23:59 Intake Total 2840 2302 540 Output Total 112 731 4817 Balance 2690 1402 -1060 Meds/Results Medications: Active Medications Generic Name Dose Route Start Last Admin Trade Name Freq PRN Reason Stop Dose Admin Acetaminophen 650 mg 09/06/19 16:44 09/08/19 09:21 Tylenol Tablet PO 650 mg Q4H PRN Administration Mild pain 1-3, Fever Atorvastatin Calcium 20 mg 09/06/19 21:00 09/07/19 21:33 Lipitor PO 20 mg HS GILA Administration Enoxaparin Sodium 40 mg 09/07/19 09:00 09/08/19 08:05 Lovenox SUB-Q 40 mg
--- NOTE | 2019-09-08 11:07 | PM.IMPN ---
Progress Note: A&P Assessment and Plan (1) Ulcerative colitis: Qualifiers: Digestive disease complication type: unspecified complication Ulcerative colitis location: unspecified ulcerative colitis location Qualified Code(s): K51.919 - Ulcerative colitis, unspecified with unspecified complications Code(s): K51.90 - Ulcerative colitis, unspecified, without complications Status: Acute Assessment and Plan: The patient's clinical picture suggests ulcerative colitis. Dr. Wagoner is on board. Her sx continue to improve with IV steroids. She reports 1 loose stool today. Plan for follow-up with Dr. Wagoner outpatient Plan to continue IV steroids for today and begin PO steroids with slow taper tomorrow She has remained symptomatic despite mesalamine so additional lab testing is pending for imuran vs entyvio Records are pending from her previous colonoscopy (2) Leg swelling: Code(s): M79.89 - Other specified soft tissue disorders Status: Acute Assessment and Plan: The pt has edema to the lower extremities bilaterally. Calf tenderness is negative. Venous doppler to r/o DVT Update: Venous doppler was positive for bilateral [id number] deep venous thrombosis in the right soleus vein and one of the paired right peroneal veins and in both the paired left peroneal veins. Will begin therapeutic lovenox. (3) Colitis: Code(s): K52.9 - Noninfective gastroenteritis and colitis, unspecified Status: Acute Assessment and Plan: She was diagnosed with ulcerative colitis approximately 1 month ago by biopsy. Colitis was evident on CT. Her clinical picture suggests a UC flare. Her sx have improved significantly with the addition of IV steroids. IFOB was negative. Stool cultures were negative for cryptosporidium, Ecoli 0157, and giardia. GDH antigen was detected but toxin A and B were not detected. C. diff PCR testing is pending. Campylobacter and salmonella/shigella are pending. WBC is 6.6. IFOB was negative. Blood cultures reveal NGTD. Dr. Wagoner is on board IV steroids 09/07. The pateint's symptoms have improved significantly. Continue Cipro and Flagyl empirically which were initiated 09/05 Await final stool cultures including C. diff PCR as GDH antigen was detected. (4) CHF with unknown LVEF: Code(s): I50.9 - Heart failure, unspecified Status: Acute Assessment and Plan: At presentation, there was concern for CHF, possibly given prolonged dry cough. CXR reveals no cardiomegaly. BNP is elevated at 579. Echo was performed which revealed normal left ventricular chamber dimension, normal ventricular systolic function is normal, estimated at 60-65%, grade I diastolic dysfunction, trace tricuspid valve regurgitation, and moderate pulmonary hypertension estimated at 51mmHg. She has a known hx of RAUL. Continue follow-up with sleep medicine specialist Continue to monitor for sx. Will consider low dose lasix for leg edema. I suspect that this is primarily dependent due to recent inactivity but will order venous doppler to r/o DVT. (5) Obstructive sleep apnea: Code(s): G47.33 - Obstructive sleep apnea (adult) (pediatric) Status: Acute Assessment and Plan: Patient has a history of sleep apnea and uses CPAP regularly. 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 Hanson. Her baseline is unknown. Cr is stable at 0.8 today. Continue to monitor kidney function (7) Foot pain, right: Code(s): M79.671 - Pain in right foot Status:
[2019-09-08] MEDS: lisinopriL 20 MG TABLET PO (12:33)
[2019-09-08 16:42] LABS: Potassium 3.7 mmol/L (3.4-5.0)
[2019-09-08 16:45] LABS: Alanine Aminotransferase 10 U/L (4-35); Albumin Level 3.2 g/dL (3.5-5.1); Alkaline Phosphatase 67 U/L (38-126); Aspartate Amino Transferase 16 U/L (14-36); Bilirubin,Total 0.2 mg/dL (0.2-1.3); Blood Urea Nitrogen 15 mg/dL (7-17); Calcium 8.1 mg/dL (8.4-10.2); Carbon Dioxide 24 mmol/L (22-30); Chloride 104 mmol/L (98-107); Estimated CRCL calculation 49 ml/min; Estimated Glomerular Filt Rate > 60; Glucose 156 mg/dL (65-105); Sodium 134 mmol/L (137-145)
[2019-09-08 16:47] LABS: INR 1.1; Prothrombin Time 14.3 Seconds (11.1-14.7)
[2019-09-08 16:48] LABS: Partial Thromboplastin Time 31.9 SECONDS (22.3-36.8)
[2019-09-08] MEDS: ATORVASTATIN 20 MG TABLET PO (20:10)
[2019-09-08] MEDS: ENOXAPARIN 80 MG/0.8 ML SYRINGE 65 MG SUB-Q (20:11)
[2019-09-08] MEDS: MELATONIN 5 MG TABLET PO (21:59)
[2019-09-09 02:00] VITALS: BP 129/66; PULSE 56; RESP 16; TEMP 36.7; O2SAT 100
[2019-09-09 05:06] VITALS: PULSE 61; RESP 16; O2SAT 99
[2019-09-09] MEDS: methylPREDNISolone SOD SUCC 40 MG VIAL IV PUSH (05:41)
[2019-09-09] MEDS: metroNIDAZOLE 500 MG/ISO 100ML 500 MG/100 ML BAG 100 MG IVPB ×3 (05:42→21:30)
[2019-09-09 06:00] VITALS: BP 135/76; PULSE 58; RESP 16; TEMP 36.1; O2SAT 98
[2019-09-09 06:33] LABS: Hemoglobin 9.3 g/dL (12.0-15.0); Mean Corpuscular Volume 80.1 fl (80-100); Mean Platelet Volume 8.4 fl (7.4-10.4); Platelet Count Result 526 k/mm3 (150-375); Red Blood Count 3.87 M/mm3 (4.2-5.4); Red Cell Distribution Width 14.5 % (11.5-14.5); White Blood Count 8.3 K/mm3 (4.5-10.0)
[2019-09-09 06:44] LABS: Potassium 4.3 mmol/L (3.4-5.0)
[2019-09-09 06:49] LABS: Alanine Aminotransferase 10 U/L (4-35); Alkaline Phosphatase 60 U/L (38-126); Aspartate Amino Transferase 15 U/L (14-36); Bilirubin,Total 0.2 mg/dL (0.2-1.3); Blood Urea Nitrogen 21 mg/dL (7-17); CRP 3.4 mg/dL (<1.0); Calcium 8.2 mg/dL (8.4-10.2); Carbon Dioxide 26 mmol/L (22-30); Chloride 105 mmol/L (98-107); Estimated CRCL calculation 49 ml/min; Estimated Glomerular Filt Rate > 60; Glucose 111 mg/dL (65-105); Sodium 135 mmol/L (137-145)
[2019-09-09 07:25] LABS: Vitamin D 25 Hydroxy 41.7 ng/mL
[2019-09-09] MEDS: CIPROFLOXACIN 400 MG/D5W 200ML 200 ML 200 MG IVPB ×2 (07:56→20:15)
[2019-09-09] MEDS: ENOXAPARIN 80 MG/0.8 ML SYRINGE 65 MG SUB-Q ×2 (07:57→20:15)
[2019-09-09] MEDS: lisinopriL 20 MG TABLET PO (07:58)
[2019-09-09] MEDS: FAMOTIDINE 20 MG/2 ML VIAL IV PUSH ×2 (07:58→20:14)
--- NOTE | 2019-09-09 09:01 | PM.IMPN ---
Progress Note: A&P Assessment and Plan (1) Ulcerative colitis: Qualifiers: Ulcerative colitis location: unspecified ulcerative colitis location Digestive disease complication type: unspecified complication Qualified Code(s): K51.919 - Ulcerative colitis, unspecified with unspecified complications Code(s): K51.90 - Ulcerative colitis, unspecified, without complications Status: Acute Assessment and Plan: The patient's clinical picture suggests ulcerative colitis. Dr. Wagoner is on board. Her sx continue to improve with IV steroids. She had 2 loose stools yesterday and has not had any stools today. Plan for follow-up with Dr. Wagoner outpatient Discussed with GI and will transition to PO steroids with slow taper She has remained symptomatic despite mesalamine and GI has ordered labs to determine other options for maintenance therapy (imuran vs entyvio) Records are pending from her previous colonoscopy (2) Peroneal DVT (deep venous thrombosis): Code(s): I82.459 - Acute embolism and thrombosis of unspecified peroneal vein Status: Acute Assessment and Plan: Venous doppler was positive for bilateral [id number] deep venous thrombosis in the right soleus vein, one of the paired right peroneal veins, and the paired left peroneal veins. The pt is at risk for thrombosis due to acute flare of IBD and recent immobility at home since she was not feeing well. She continues to have edema. Continue therapeutic lovenox. Will monitor closely for bleeding. Encourage ambulation (3) Biliary colic: Code(s): K80.50 - Calculus of bile duct without cholangitis or cholecystitis without obstruction Status: Acute Assessment and Plan: The pt has RUQ and epigastric discomfort which radiates to the right shoulder after eating her breakfast yesterday and today. She has a 2.9cm stone in the dependent aspect of the gallbladder on RUQ US. I have consulted general surgery and will await further recommendations which are greatly appreciated. She has no nausea or vomiting. She did tolerate eating fine with subsequent post-prandial pain. Bilirubin and LFTs WNL. Await general surgery recommendations (4) Colitis: Code(s): K52.9 - Noninfective gastroenteritis and colitis, unspecified Status: Acute Assessment and Plan: The pt was diagnosed with ulcerative colitis approximately 1 month ago by biopsy. Colitis was evident on CT. Her clinical picture suggests a UC flare. Her sx improved with steroids. IFOB was negative. Stool cultures were negative for cryptosporidium, Ecoli 0157, salmonella/shigella, and giardia. GDH antigen was detected but toxin A and B were not detected. C. diff PCR testing negative. Campylobacter is pending. Blood cultures reveal NGTD. Her stool frequency has decreased and she denies hematochezia and melena. Continue steroids for UC. Plan to transition to PO prednisone with slow taper. Continue Cipro and Flagyl empirically for infectious colitis which were initiated 09/05 Await final stool cultures (5) CHF with unknown LVEF: Code(s): I50.9 - Heart failure, unspecified Status: Acute Assessment and Plan: At presentation, there was concern for CHF, possibly given prolonged dry cough. CXR reveals no cardiomegaly. BNP is elevated at 579. Echo was performed which revealed normal left ventricular chamber dimension, normal ventricular systolic function is normal, estimated at 60-65%, grade I diastolic dysfunction, trace tricuspid valve regurgitation, and moderate pulmonary hypertension estimated at 51mmHg. She has a known hx of RAUL. Continue follow-up with sleep medicine specialist Continue to monitor for sx (6) Obstructive sleep apnea: Code(s): G47.33 - Obstructive sleep apnea (adult) (pediatric) Status: Acute Assessment and Plan: Patient has a history of sleep apnea and uses CPAP regularly. Contin
--- NOTE | 2019-09-09 10:36 | PCNFU ---
Nutrition Follow-Up Complete: Inadequate Oral Intake as related to diarrhea/colitis as evidenced by weight loss reported and poor po intake. Goal: Adequate Intake of at least 75% of meals/supplements patient has met goal. No new goal. Pt current nutrition is Easy to Chew, Level 7. Nutrition recommendation: Low fiber Last recorded weight is 64.5 kg. Bowel Motility: +BM 09/07 Labs Reviewed:Glu 111,Na 135,Hct 31.0,Hgb 9.3 Meds Noted:Leroy Alvarado Additional Notes: Dietitian Consult for ulcerative Colitis. Educated patient today over the phone due to COVID 19 precautions. Patient states to a good understanding of education, all education material will be sent my mail. Oral Intake has been good greater than 75% of meals. She is also drinking Ensure Compact BID. Breakfast today patient had oatmeal, banana and apple juice. Monitoring: RD will monitor every 5 days.
[2019-09-09] MEDS: predniSONE 20 MG TABLET 40 MG PO (12:51)
[2019-09-09 14:00] VITALS: BP 143/58; PULSE 74; RESP 18; TEMP 36.6; O2SAT 98
--- NOTE | 2019-09-09 14:20 | WPDGIPROGNO ---
Progress Note: A&P Assessment and Plan (1) Ulcerative colitis: Qualifiers: Ulcerative colitis location: unspecified ulcerative colitis location Digestive disease complication type: unspecified complication Qualified Code(s): K51.919 - Ulcerative colitis, unspecified with unspecified complications Code(s): K51.90 - Ulcerative colitis, unspecified, without complications Status: Acute Assessment and Plan: improving, on steroids (ok to switch to oral prednisone, then will need slow taper)- mesalamine did not work, awaiting on tpmt activity to see if we can use imuran, another alternative can be entyvio iv as outpatient. (2) Cholelithiasis: Qualifiers: Cholelithiasis location: gallbladder Cholecystitis presence: without cholecystitis Biliary obstruction: without biliary obstruction Qualified Code(s): K80.20 - Calculus of gallbladder without cholecystitis without obstruction Code(s): K80.20 - Calculus of gallbladder without cholecystitis without obstruction Status: Acute Assessment and Plan: large GS by ultrasound and symptomatic last 2 days, will ask surgery to see (3) Peroneal DVT (deep venous thrombosis): Qualifiers: Chronicity: acute Laterality: bilateral Qualified Code(s): I82.453 - Acute embolism and thrombosis of peroneal vein, bilateral Code(s): I82.459 - Acute embolism and thrombosis of unspecified peroneal vein Status: Acute Assessment and Plan: on blood thinners now (4) Biliary colic: Code(s): K80.50 - Calculus of bile duct without cholangitis or cholecystitis without obstruction Status: Acute (5) Nausea and vomiting in adult: Code(s): R11.2 - Nausea with vomiting, unspecified Status: Acute Assessment and Plan: resolved (6) Fever: Qualifiers: Fever type: unspecified Qualified Code(s): R50.9 - Fever, unspecified Code(s): R50.9 - Fever, unspecified Status: Acute Assessment and Plan: resolved Subjective Date/time seen: 09/09/19 14:20 Interval history: she was found to have DVT and now she is on blood thinnes. Diarrhea better, tolerating diet but yesterday and today had ruq/epigastric discomfort after eating. No blood in stools. Review of Systems Review of Systems: All systems reviewed & are unremarkable except as noted in HPI and below Exam Const: General: comfortable and no acute distress HENMT: General nose exam: Normal nares present Eyes: General: appearance normal, both eyes and all related structures Neck: Neck: no JVD Resp: Auscultation: clear to auscultation bilaterally Cardio: Rate: regular rate Rhythm: regular rhythm GI: Inspection: non-distended GI Palp: Yes Soft to palpation Skin: General skin exam: normal color Neuro: General: gait normal Speech: normal speech Extrem: General: edema (trace edema legs) Psych: Mental Status: mental status grossly normal Objective Data Vital Signs Vital Signs: Vital Signs - 24 hr 09/08/19 15:18 09/08/19 18:20 09/08/19 22:00 Temperature 97.4 F L 97.5 F L 97.9 F Pulse Rate 82 65 61 Respiratory Rate 16 16 16 Blood Pressure 143/64 H 152/75 H 146/69 H Pulse Oximetry 99 98 98 09/08/19 22:38 09/09/19 02:00 09/09/19 05:06 Temperature 98.0 F Pulse Rate 71 56 L 61 Respiratory Rate 16 16 16 Blood Pressure 129/66 Pulse Oximetry 97 100 99 09/09/19 06:00 Temperature 97.0 F L Pulse Rate 58 L Respiratory Rate 16 Blood Pressure 135/76 Pulse Oximetry 98 Intake/Output Intake/Output: Intake & Output 09/06/19 09/07/19 09/08/19 09/09/19 23:59 23:59 23:59 23:59 Intake Total 2840 2302 3510 1090 Output Total 056 418 7095 975 Balance 2690 1402 310 115 Meds/Results Medications: Active Medications Generic Name Dose Route Start Last Admin Trade Name Freq PRN Reason Stop Dose Admin Acetaminophen 650 mg 09/06/19 16:44 09/08/19 09:21 Tylenol Tablet PO 650 mg Q
--- NOTE | 2019-09-09 16:49 | PM.CNGS ---
Assessment and Plan Assessment and plan (1) Cholelithiasis with chronic cholecystitis: Qualifiers: Cholelithiasis location: gallbladder Biliary obstruction: without biliary obstruction Qualified Code(s): K80.10 - Calculus of gallbladder with chronic cholecystitis without obstruction Code(s): K80.10 - Calculus of gallbladder with chronic cholecystitis without obstruction Status: Chronic Assessment and Plan: It seems that the patient has developed biliary colic and most likely has chronic cholecystitis with gallstones. I discussed this with her and have recommended going ahead with laparoscopic cholecystectomy. I discussed the procedure thoroughly and the usual recovery. All questions were answered. We will plan to go ahead and do this tomorrow. The patient is agreeable to proceeding. (2) Ulcerative colitis: Qualifiers: Ulcerative colitis location: unspecified ulcerative colitis location Digestive disease complication type: unspecified complication Qualified Code(s): K51.919 - Ulcerative colitis, unspecified with unspecified complications Code(s): K51.90 - Ulcerative colitis, unspecified, without complications Status: Acute Assessment and Plan: Admitted with acute flare of ulcerative colitis. Dr. Wagoner and hospitalist service are managing. Has responded well to steroids and antibiotics. (3) Peroneal DVT (deep venous thrombosis): Qualifiers: Chronicity: acute Laterality: bilateral Qualified Code(s): I82.453 - Acute embolism and thrombosis of peroneal vein, bilateral Code(s): I82.459 - Acute embolism and thrombosis of unspecified peroneal vein Status: Acute Assessment and Plan: Ultrasound shows catheterization vein DVT. Will hold morning dose of Lovenox and proceed with surgery tomorrow around noon. (4) Chronic kidney disease: Qualifiers: Chronic kidney disease stage: stage 3 (moderate) Qualified Code(s): N18.3 - Chronic kidney disease, stage 3 (moderate) Code(s): N18.9 - Chronic kidney disease, unspecified Status: Chronic (5) Anemia of chronic disease: Code(s): D63.8 - Anemia in other chronic diseases classified elsewhere Status: Chronic History of Present Illness Consult details Consult date: 09/09/19 Reason for consult: gallstones Narrative: Patient is a 74-year-old woman who was admitted through the emergency room to [facility] 4 days ago on September 04. At that time she was having abdominal pain and diarrhea. She was found to have an exacerbation of ulcerative colitis. She has been treated with antibiotics and steroids by Dr. Wagoner and this is improved. She also was having some right foot pain and subsequent venous Doppler showed a calf vein DVT on the right. She is on a therapeutic dose of Lovenox subcu. Also on her initial imaging she was found to have a large gallstone. Yesterday morning after a fairly healthy low fat breakfast, she had epigastric abdominal pain that radiated to both sides but mostly in the right upper quadrant. This was associated with pain and tenderness. She did not have any nausea or vomiting. After breakfast this morning, she developed the same symptoms and continues to have right upper quadrant abdominal pain. She is seen now in consultation regarding gallstones and right upper quadrant pain. She tells me that she was told after some imaging 2 or 3 months ago that she does have gallstones but she had never had symptoms of epigastric pain until yesterday morning. She is also had a right upper quadrant ultrasound on this admission which showed a large gallstone but no signs of cholecystitis. Her liver function tests have been normal. Review of Systems Review of Systems: All systems reviewed & are unremarkable except as noted in HPI and below Constitutional: Constitutional: Denies headache(s) ENT: Denies headache(s) Cardiovascular: Cardiovascular: Mikhail
--- NOTE | 2019-09-09 17:16 | WPDANESEPP ---
Anes - Eval Pre Procedure Procedure: Operation Date: 09/10/19 12:00 Proposed Procedures p Laparoscopic Cholecystectomy - Adeel Mojica MD Date/Time: 09/09/19 17:16 Pre Op Diagnosis: colitis Patient Data Age: 74 Gender: F Height: 1.68 m Weight: 64.5 kg Last Vital Signs Temp 36.6 C 09/09/19 14:00 Pulse 74 09/09/19 14:00 Resp 18 09/09/19 14:00 BP 143/58 H 09/09/19 14:00 Pulse Ox 98 09/09/19 14:00 Allergies Allergy/AdvReac Type Severity Reaction Status Date / Time No Known Allergies Allergy Verified 09/05/19 23:13 Home Medications Medication Instructions Recorded Confirmed Type albuterol sulfate [ProAir HFA] 2 puff INHALATION QID PRN 09/06/19 09/06/19 History atorvastatin 20 mg PO HS 09/06/19 09/06/19 History ergocalciferol (vitamin D2) 50,000 unit PO WEEKLY 09/06/19 09/06/19 History [Vitamin D2] lifitegrast [Xiidra] 1 drp OPHTHALMIC (EYE) Q12H 09/06/19 09/06/19 History lisinopril 20 mg PO DAILY 09/06/19 09/06/19 History mesalamine 1.2 g PO ACHS 09/06/19 09/06/19 History omeprazole 20 mg PO DAILY 09/06/19 09/06/19 History Laboratory Tests 09/09/19 09/09/19 09/09/19 05:44 05:44 05:45 WBC 8.3 K/mm3 K/mm3 (4.5-10.0) RBC 3.87 M/mm3 L M/mm3 (4.2-5.4) Hgb 9.3 g/dL L g/dL (12.0-15.0) Hct 31.0 % L % (37.0-47.0) MCV 80.1 fl fl (80-100) MCH 24.0 pg L pg (26-34) MCHC 30.0 g/dl L g/dl (32-36) RDW 14.5 % % (11.5-14.5) Plt Count 526 k/mm3 H k/mm3 (150-375) MPV 8.4 fl fl (7.4-10.4) Sodium 135 mmol/L L mmol/L (137-145) Potassium 4.3 mmol/L mmol/L (3.4-5.0) Chloride 105 mmol/L mmol/L (98-107) Carbon Dioxide 26 mmol/L mmol/L (22-30) BUN 21 mg/dL H mg/dL (7-17) Creatinine 0.80 mg/dL mg/dL (0.7-1.0) Estim Creat Clear Calc 49 ml/min ml/min Estimated GFR > 60 (59 - ) Glucose 111 mg/dL H mg/dL (65-105) Calcium 8.2 mg/dL L mg/dL (8.4-10.2) Total Bilirubin 0.2 mg/dL mg/dL (0.2-1.3) AST 15 U/L U/L (14-36) ALT 10 U/L U/L (4-35) Alkaline Phosphatase 60 U/L U/L (38-126) C-Reactive Protein 3.4 mg/dL H mg/dL (<1.0) Total Protein 7.0 g/dL g/dL (6.3-8.2) Albumin 3.0 g/dL L g/dL (3.5-5.1) Vitamin D 25-Hydroxy 41.7 ng/mL ng/mL Patient hx anesthesia problems: none Family hx anesthesia problems: none PMFSH Past Medical History Medical History (Updated 09/09/19 @ 16:59 by Adeel Mojica MD) Cholelithiasis Chronic kidney disease GERD (gastroesophageal reflux disease) Hyperlipidemia Hyponatremia Iron deficiency anemia Mild intermittent asthma Nausea and vomiting in adult Obstructive sleep apnea Osteoporosis Ulcerative colitis Ulcerative colitis Surgical History Surgical History (Updated 09/06/19 @ 12:11 by Charline Maravilla PA-C) H/O shoulder surgery Right shoulder History of knee replacement Bilateral History of tonsillectomy History of tubal ligation Family History Family History (Updated 09/06/19 @ 16:20 by Charline Maravilla PA-C) Mother , 89 Breast cancer Father Acute myocardial infarction Daughter Crohn's disease Social History Social History (Updated 09/06/19 @ 12:13 by Charline Maravilla PA-C) Social History: Ms. Álvarez lives alone at home with her 2 cats. She has 5 children. She drives and is independent in her ADLs. She designates her daughter, Nancy, as her surrogate decision maker. She would like to be a full code. Smoking packs per day: 0.5 Smoking cigarettes per day: 10.0 Years smoked: 12 Smoking pack-years: 6.00 Smoking status: Former smoker Tobacco type: cigarettes Alcohol intake: former Alcohol use details: Former social alcohol use Substance use: never Living arrangements: alone
[2019-09-09] MEDS: ATORVASTATIN 20 MG TABLET PO (20:15)
[2019-09-09] MEDS: MELATONIN 5 MG TABLET PO (21:30)
[2019-09-09 22:00] VITALS: BP 141/69; PULSE 58; RESP 18; TEMP 36.4; O2SAT 100
[2019-09-09 22:35] VITALS: PULSE 68; RESP 18; O2SAT 98
[2019-09-10] VITALS (14 sets, daily range): BP systolic 116–155; BP diastolic 51–92; PULSE 52–84; RESP 12–20; TEMP 36–36.8; O2SAT 96–100
[2019-09-10 02:17] LABS: Hepatitis B Core Ab Total Nonreactive (Nonreactive)
[2019-09-10 05:45] LABS: Alanine Aminotransferase 11 U/L (4-35); Albumin Level 2.7 g/dL (3.5-5.1); Alkaline Phosphatase 52 U/L (38-126); Aspartate Amino Transferase 20 U/L (14-36); Bilirubin,Total 0.3 mg/dL (0.2-1.3); Blood Urea Nitrogen 21 mg/dL (7-17); Calcium 8.3 mg/dL (8.4-10.2); Carbon Dioxide 30 mmol/L (22-30); Chloride 103 mmol/L (98-107); Estimated CRCL calculation 49 ml/min; Estimated Glomerular Filt Rate > 60; Glucose 83 mg/dL (65-105); Potassium 4.3 mmol/L (3.4-5.0); Sodium 135 mmol/L (137-145)
[2019-09-10] MEDS: metroNIDAZOLE 500 MG/ISO 100ML 500 MG/100 ML BAG 100 MG IVPB ×3 (05:54→20:48)
[2019-09-10 05:56] LABS: Hematocrit 30.3 % (37.0-47.0); Hemoglobin 9.1 g/dL (12.0-15.0); Mean Corpuscular Volume 79.9 fl (80-100); Mean Platelet Volume 8.3 fl (7.4-10.4); Platelet Count Result 496 k/mm3 (150-375); Red Blood Count 3.79 M/mm3 (4.2-5.4); Red Cell Distribution Width 14.6 % (11.5-14.5); White Blood Count 9.8 K/mm3 (4.5-10.0)
[2019-09-10] MEDS: lisinopriL 20 MG TABLET PO (08:39)
[2019-09-10] MEDS: FAMOTIDINE 20 MG/2 ML VIAL IV PUSH ×2 (08:39→20:46)
[2019-09-10] MEDS: CIPROFLOXACIN 400 MG/D5W 200ML 200 ML 200 MG IVPB ×2 (08:42→20:45)
--- NOTE | 2019-09-10 09:44 | PM.IMPN ---
Progress Note: A&P Assessment and Plan (1) Ulcerative colitis: Qualifiers: Digestive disease complication type: unspecified complication Ulcerative colitis location: unspecified ulcerative colitis location Qualified Code(s): K51.919 - Ulcerative colitis, unspecified with unspecified complications Code(s): K51.90 - Ulcerative colitis, unspecified, without complications Status: Acute Assessment and Plan: She has a hx of ulcerative colitis which was diagnosed approximately 1 month ago on colonoscopy at outside facility. She was started on mesalamine but remained symptomatic and is being treated for an acute flare. She reports her first formed bowel movement today. Continue PO prednisone with slow taper She has remained symptomatic despite mesalamine and GI has ordered labs to determine other options for maintenance therapy (imuran vs entyvio) and she will follow-up with Dr. Wagoner outpatient (2) Peroneal DVT (deep venous thrombosis): Qualifiers: Chronicity: acute Laterality: bilateral Qualified Code(s): I82.453 - Acute embolism and thrombosis of peroneal vein, bilateral Code(s): I82.459 - Acute embolism and thrombosis of unspecified peroneal vein Status: Acute Assessment and Plan: Venous doppler was positive for bilateral [id number] deep venous thrombosis in the right soleus vein, one of the paired right peroneal veins, and the paired left peroneal veins. The pt is at risk for thrombosis due to acute flare of IBD and recent immobility at home since she was not feeing well. She continues to have edema. Continue therapeutic lovenox. Will monitor closely for bleeding. Encourage ambulation (3) Biliary colic: Code(s): K80.50 - Calculus of bile duct without cholangitis or cholecystitis without obstruction Status: Acute Assessment and Plan: The pt has RUQ and epigastric discomfort which radiates to the right shoulder after eating her breakfast 09/07 and 09/08. She has a 2.9cm stone in the dependent aspect of the gallbladder on RUQ US. General surgery is on board. General surgery will proceed with laparoscopic cholecystectomy today (4) Colitis: Code(s): K52.9 - Noninfective gastroenteritis and colitis, unspecified Status: Acute Assessment and Plan: The pt was diagnosed with ulcerative colitis approximately 1 month ago by biopsy. Colitis was evident on CT. Her clinical picture suggests a UC flare. Her sx improved with steroids. IFOB was negative. Stool cultures were negative for cryptosporidium, Ecoli 0157, salmonella/shigella, and giardia. GDH antigen was detected but toxin A and B were not detected. C. diff PCR testing negative. Campylobacter is pending. Blood cultures reveal NGTD. Continue PO prednisone with slow taper Continue Cipro and Flagyl empirically for infectious colitis which were initiated 09/05 Await final stool cultures (5) CHF with unknown LVEF: Code(s): I50.9 - Heart failure, unspecified Status: Acute Assessment and Plan: At presentation, there was concern for CHF, possibly given prolonged dry cough. CXR reveals no cardiomegaly. BNP is elevated at 579. Echo was performed which revealed normal left ventricular chamber dimension, normal ventricular systolic function is normal, estimated at 60-65%, grade I diastolic dysfunction, trace tricuspid valve regurgitation, and moderate pulmonary hypertension estimated at 51mmHg. She has a known hx of RAUL. Continue follow-up with sleep medicine specialist for RAUL Continue to monitor for sx (6) Obstructive sleep apnea: Code(s): G47.33 - Obstructive sleep apnea (adult) (pediatric) Status: Acute Assessment and Plan: Patient has a history of sleep apnea and uses CPAP regularly. Continue CPAP titrated to home settings Continue outpatient follow-up with sleep medicine specialist (7) Chronic kidney disease:
--- NOTE | 2019-09-10 11:43 | WPDGIPROGNO ---
Progress Note: A&P Assessment and Plan (1) Ulcerative colitis: Qualifiers: Ulcerative colitis location: unspecified ulcerative colitis location Digestive disease complication type: unspecified complication Qualified Code(s): K51.919 - Ulcerative colitis, unspecified with unspecified complications Code(s): K51.90 - Ulcerative colitis, unspecified, without complications Status: Acute Assessment and Plan: overall much better with steroids and antibiotics, awaiting on tpmt activity to see if we can try imuran, another option as outpatient is entyvio or any other biologic for maintenance still pending recors from previous colonoscopy (2) Cholelithiasis with chronic cholecystitis: Qualifiers: Cholelithiasis location: gallbladder Biliary obstruction: without biliary obstruction Qualified Code(s): K80.10 - Calculus of gallbladder with chronic cholecystitis without obstruction Code(s): K80.10 - Calculus of gallbladder with chronic cholecystitis without obstruction Status: Chronic Assessment and Plan: she has been symptomatic, surgery is planning to do lap coby (3) Peroneal DVT (deep venous thrombosis): Qualifiers: Chronicity: acute Laterality: bilateral Qualified Code(s): I82.453 - Acute embolism and thrombosis of peroneal vein, bilateral Code(s): I82.459 - Acute embolism and thrombosis of unspecified peroneal vein Status: Acute Assessment and Plan: she was started on blood thinners- on hold now before surgery (4) Nausea and vomiting in adult: Code(s): R11.2 - Nausea with vomiting, unspecified Status: Acute Assessment and Plan: resolved, she has been tolerating diet Subjective Date/time seen: 09/10/19 11:43 Interval history: overall better, she had her first formed bowel movement today after 4 months (diagnosed with UC a month ago) Review of Systems Review of Systems: All systems reviewed & are unremarkable except as noted in HPI and below Exam Const: General: comfortable and no acute distress HENMT: General nose exam: Normal nares present Eyes: General: appearance normal, both eyes and all related structures Neck: Neck: no JVD Resp: Auscultation: clear to auscultation bilaterally Cardio: Rate: regular rate Rhythm: regular rhythm GI: Inspection: non-distended GI Palp: Yes Soft to palpation and Yes Tenderness to palpation present (GI) (minimal pain ruq, no rebound) Auscultation: normal bowel sounds Skin: General skin exam: normal color Neuro: General: gait normal Speech: normal speech Extrem: General: edema (trace edema legs) Psych: Mental Status: mental status grossly normal Objective Data Vital Signs Vital Signs: Vital Signs - 24 hr 09/09/19 14:00 09/09/19 22:00 09/09/19 22:35 Temperature 97.8 F 97.6 F Pulse Rate 74 58 L 68 Respiratory Rate 18 18 18 Blood Pressure 143/58 H 141/69 H Pulse Oximetry 98 100 98 09/10/19 04:05 09/10/19 06:00 Temperature 96.8 F L Pulse Rate 68 52 L Respiratory Rate 16 18 Blood Pressure 122/64 Pulse Oximetry 98 100 Intake/Output Intake/Output: Intake & Output 09/07/19 09/08/19 09/09/19 09/10/19 23:59 23:59 23:59 23:59 Intake Total 2302 3510 2880 500 Output Total 900 3200 1375 800 Balance 4521 845 5502 -300 Meds/Results Medications: Active Medications Generic Name Dose Route Start Last Admin Trade Name Freq PRN Reason Stop Dose Admin Acetaminophen 650 mg 09/06/19 16:44 09/08/19 09:21 Tylenol Tablet PO 650 mg Q4H PRN Administration Mild pain 1-3, Fever Atorvastatin Calcium 20 mg 09/06/19 21:00 09/09/19 20:15 Lipitor PO 20 mg HS GILA Administration Enoxaparin Sodium 65 mg 09/08/19 21:00 09/09/19 20:15 Lovenox SUB-Q 65 mg Q12HR GILA Administration Ergocalciferol 50,000 unit 09/12/19 09:00 Drisdol PO David@0900 GILA Famotidine 20 mg 09/06/19 21:00 09/10/19 08:39 Pepcid Iv IV
--- NOTE | 2019-09-10 12:00 | PC.NURSE ---
To OR per [ bed], IV [ 22 LFA SL]
--- NOTE | 2019-09-10 12:23 | P.CDI_ITS ---
CDI Query Clarification Request -Patient admitted obs 09/05 and IP 09/06 -Venous doppler from 09/07 positive for bilateral below the knee DVT Please clarify if DVT's were: * Present on admission * Not present on admission * Unable to determine
--- NOTE | 2019-09-10 12:23 | WPDCDIQUERY2 ---
CDI Query Clarification Request -Patient admitted obs 09/05 and IP 09/06 -Venous doppler from 09/07 positive for bilateral below the knee DVT Please clarify if DVT's were: Present on admission Not present on admission Unable to determine
[2019-09-10] MEDS: LACTATED RINGERS 1,000 ML 30 ML IV CONT ×2 (13:00→15:10)
--- NOTE | 2019-09-10 13:05 | P.PNAN_ITS ---
Anes - Eval Final PreProcedure Day of Procedure 09/10/19 13:05 Patient weight: normal Heart: regular rate and rhythm Lungs: clear to auscultation Airway: Mallampati scale class II Neurological: alert and oriented Last oral intake: >/= 8 hours ASA classification: III Emergent: no Anesthetic plan: proceed Anesthesia type and monitoring: general ETT and standard monitoring Informed Consent: The patient's anesthetic plan and its attendant risks and b enefits were discussed with the patient/family/POA. Questions were solicited and answers provided to the satisfaction of the patient/family/POA.
[2019-09-10] MEDS: BUPIVACAINE/EPINEPHRINE 0.5% 30 ML VIAL INFILTRATE (13:58)
--- NOTE | 2019-09-10 14:29 | PM.PROC ---
Procedure Note - Detailed Date of procedure: 09/10/19 Pre-op diagnosis: colitis Chronic cholecystitis, cholelithiasis Post-op diagnosis: same Procedure performed: Laparoscopic cholecystectomy Description of procedure: The patient was taken to surgery and induced into general anesthesia. The abdomen was prepped and draped. Trocars were placed in the usual fashion using 0.5% Marcaine with epinephrine and applied Medical optical trocars. A 5 millimeter camera was used. The gallbladder was decompressed with a laparoscopic aspirator. The cholecystotomy was closed with a Vicryl endo-loop. The gallbladder was retracted anterosuperiorly. Adhesions to the gallbladder were taken down so that the cholecystohepatic triangle was exposed. Traction was placed on the infundibulum. The cystic duct and cystic artery were dissected out very clearly. The gallbladder was dissected off the liver at its lower 3rd. Critical view was achieved. We securely clipped and divided the cystic duct and cystic artery. The gallbladder was then further retracted so that the peritoneal attachments to the liver could be divided. Once the gallbladder was freed entirely, it was placed in an Endo-Catch bag and retrieved through the 10 11 epigastric trocar site. The epigastric trocar was then replaced. We reviewed the right upper quadrant. It was irrigated and suctioned. All looked good with no evidence of bleeding or bile leakage. We evacuated CO2 and removed the trocar sleeves. The fascia at the epigastric trocar site was closed with 0 Vicryl suture. Skin wounds were closed with subcuticular 4 O Monocryl skin suture. The wounds were dressed with Exofin surgical adhesive. Patient was awakened and taken to recovery in good condition. Sponge and needle counts were correct x2. Anesthesia: GETA and local (0.5% Marcaine with epinephrine) Surgeon: Adeel Mojica MD Director Geothermal Operations: Tasha MORALES Estimated blood loss (mL): 5 Drains: No Packing: No Pathology: yes (Gallbladder) Complications: None Condition: stable Disposition: PACU Findings: Chronic inflammation, one large gallstone noted. No biliary ductal dilatation, no liver abnormalities.
[2019-09-10] MEDS: HYDROMORPHONE HCL 1 MG/ML INJ 0.5 MG IV PUSH (15:05)
--- NOTE | 2019-09-10 15:35 | PC.NURSE ---
Patient returned from post op 1530.
[2019-09-10] MEDS: predniSONE 20 MG TABLET 40 MG PO (15:43)
[2019-09-10] MEDS: MELATONIN 5 MG TABLET PO (20:46)
[2019-09-10] MEDS: ENOXAPARIN 30 MG/0.3 ML SYRINGE SUB-Q (20:46)
[2019-09-10 22:39] LABS: Quantiferon TB Plus, 1T NEGATIVE (NEGATIVE)
[2019-09-11 02:00] VITALS: BP 129/77; PULSE 62; RESP 18; TEMP 36.6; O2SAT 100
[2019-09-11 02:37] VITALS: PULSE 63; RESP 18; O2SAT 97
[2019-09-11] MEDS: metroNIDAZOLE 500 MG/ISO 100ML 500 MG/100 ML BAG 100 MG IVPB (05:01)
[2019-09-11 06:00] VITALS: BP 138/65; PULSE 65; RESP 16; TEMP 36.3; O2SAT 100
[2019-09-11 06:47] LABS: Mean Corpuscular Hemoglobin 24.5 pg (26-34); Mean Corpuscular Volume 78.8 fl (80-100); Mean Platelet Volume 8.1 fl (7.4-10.4); Platelet Count Result 466 k/mm3 (150-375); Red Blood Count 3.68 M/mm3 (4.2-5.4); Red Cell Distribution Width 14.7 % (11.5-14.5); White Blood Count 7.3 K/mm3 (4.5-10.0)
[2019-09-11 07:55] LABS: Alanine Aminotransferase 14 U/L (4-35); Albumin Level 2.7 g/dL (3.5-5.1); Alkaline Phosphatase 50 U/L (38-126); Aspartate Amino Transferase 24 U/L (14-36); Bilirubin,Total 0.2 mg/dL (0.2-1.3); Blood Urea Nitrogen 17 mg/dL (7-17); Calcium 7.9 mg/dL (8.4-10.2); Carbon Dioxide 28 mmol/L (22-30); Chloride 102 mmol/L (98-107); Estimated CRCL calculation 44 ml/min; Estimated Glomerular Filt Rate > 60; Glucose 109 mg/dL (65-105); Sodium 135 mmol/L (137-145)
[2019-09-11 07:56] LABS: Potassium 4.3 mmol/L (3.4-5.0)
[2019-09-11] MEDS: predniSONE 20 MG TABLET 40 MG PO (08:55)
[2019-09-11] MEDS: CIPROFLOXACIN 400 MG/D5W 200ML 200 ML 200 MG IVPB (08:55)
[2019-09-11] MEDS: FAMOTIDINE 20 MG/2 ML VIAL IV PUSH (08:56)
[2019-09-11] MEDS: ENOXAPARIN 30 MG/0.3 ML SYRINGE SUB-Q (08:56)
[2019-09-11] MEDS: lisinopriL 20 MG TABLET PO (08:56)
[2019-09-11 11:12] VITALS: BP 153/72; PULSE 77; RESP 18; TEMP 36.3; O2SAT 100
--- NOTE | 2019-09-11 12:01 | PM.DS ---
DS: Diagnosis Admitting Diagnosis Admitting Diagnosis: Noninfective gastroenteritis and colitis, unspecified Discharge Diagnosis (1) Ulcerative colitis: Qualifiers: Ulcerative colitis location: unspecified ulcerative colitis location Digestive disease complication type: unspecified complication Qualified Code(s): K51.919 - Ulcerative colitis, unspecified with unspecified complications Code(s): K51.90 - Ulcerative colitis, unspecified, without complications Status: Acute (2) Cholelithiasis with chronic cholecystitis: Qualifiers: Cholelithiasis location: gallbladder Biliary obstruction: without biliary obstruction Qualified Code(s): K80.10 - Calculus of gallbladder with chronic cholecystitis without obstruction Code(s): K80.10 - Calculus of gallbladder with chronic cholecystitis without obstruction Status: Chronic (3) Peroneal DVT (deep venous thrombosis): Qualifiers: Chronicity: acute Laterality: bilateral Qualified Code(s): I82.453 - Acute embolism and thrombosis of peroneal vein, bilateral Code(s): I82.459 - Acute embolism and thrombosis of unspecified peroneal vein Status: Acute (4) Obstructive sleep apnea: Code(s): G47.33 - Obstructive sleep apnea (adult) (pediatric) Status: Acute (5) Chronic kidney disease: Qualifiers: Chronic kidney disease stage: stage 3 (moderate) Qualified Code(s): N18.3 - Chronic kidney disease, stage 3 (moderate) Code(s): N18.9 - Chronic kidney disease, unspecified Status: Chronic (6) Foot pain, right: Code(s): M79.671 - Pain in right foot Status: Resolved (7) Anemia of chronic disease: Code(s): D63.8 - Anemia in other chronic diseases classified elsewhere Status: Chronic (8) Non-productive cough: Code(s): R05 - Cough Status: Chronic DS: Summary Hospital Course Reason for hospitalization: Acute Flare of Ulcerative Colitis Hospital Course: Mrs. Álvarez is a 74 y.o. female with PMH significant for HLD, HTN, ulcerative colitis, CKD, GERD, RAUL, and mild asthma who presented to the ED from home with c/o right foot swelling, fever (Tmax 103F), diarrhea, and dry cough. She was diagnosed with ulcerative colitis on biopsy from colonoscopy 1 month prior and prescribed mesalamine. She reported 4 month hx of large volume diarrhea without hematochezia or melena, abdominal cramping, and bloating. Initial workup in the ED revealed WBC 7,600, Hb 9.8, Hct 32.5, sodium 130, calcium 7.8, BNP 579, CXR with bibasilar discoid atelectasis or scarring, and CT abd/pelvis with colonic wall thickening and pericolic fat stranding from the cecum to the distal transverse colon consistent with colitis without evidence of pneumatosis, perforation, or abscess and a 1.9x2.7cm calcified stone at the gallbladder neck with mild to moderate gallbladder distention. She was tested for COVID-19 which was negative. She was treated with IV cipro and flagyl empiirically for colitis. She was admitted to the hospitalist service for further evaluation and treatment. She was treated with IV steroids for presumed acute flare of ulcerative colitis with significant symptomatic improvement. Stool cultures were obtained and negative. IFOB was negative. Blood cultures were obtained and reveal NGTD. Her stool frequency decreased and she reported her first formed bowel movement in 4 months on 09/09. Venous doppler was ordered due to leg swelling and right foot pain and was positive for bilateral [id number] deep venous thrombosis in the right soleus vein, one of the paired right peroneal veins, and the paired left peroneal veins. This was felt to be a provoked DVT due to acute flare of IBD and recent immobility at home since she was not feeing well with her acute illness. She was treated with lovenox SQ for her DVT and discharged on eliquis. She was very disappointed about the diagnosis of DVT and need for anticoagulation an
--- NOTE | 2019-09-11 12:04 | PM.PNGS ---
Progress Note: A&P Assessment and Plan (1) Cholelithiasis with chronic cholecystitis: Qualifiers: Cholelithiasis location: gallbladder Biliary obstruction: without biliary obstruction Qualified Code(s): K80.10 - Calculus of gallbladder with chronic cholecystitis without obstruction Code(s): K80.10 - Calculus of gallbladder with chronic cholecystitis without obstruction Status: Chronic Assessment and Plan: Doing well on postop day 1. Okay to discharge today. Okay to start anticoagulation tomorrow. Discussed discharge instructions with patient. Subjective Subjective Date/Time Seen: 09/11/19 12:04 Doing well on postop day 1. Pain controlled. Tolerating diet. Exam GI: Inspection: incision (Glue intact, minimal bruising around incisions) GI Palp: Yes Tenderness to palpation present (GI) (Expected incisional) Objective Data Vital Signs Vital Signs: Vital Signs - 24 hr 09/10/19 12:29 09/10/19 14:25 09/10/19 14:40 Temperature 36.3 C L 36.4 C Pulse Rate 54 L 71 54 L Respiratory Rate 16 17 13 Blood Pressure 155/82 H 119/59 L 116/71 Pulse Oximetry 100 99 97 09/10/19 14:55 09/10/19 15:10 09/10/19 15:15 Temperature 36.8 C Pulse Rate 68 70 69 Respiratory Rate 15 14 18 Blood Pressure 124/68 116/92 H 136/51 L Pulse Oximetry 97 96 100 09/10/19 15:20 09/10/19 15:45 09/10/19 16:15 Temperature 36.8 C 36.3 C L Pulse Rate 70 62 57 L Respiratory Rate 12 18 18 Blood Pressure 122/61 126/58 L 134/68 Pulse Oximetry 100 100 100 09/10/19 18:00 09/10/19 22:00 09/10/19 22:29 Temperature 36.8 C 36.4 C L Pulse Rate 71 84 66 Respiratory Rate 18 18 20 Blood Pressure 128/63 144/81 H Pulse Oximetry 100 100 98 09/11/19 02:00 09/11/19 02:37 09/11/19 06:00 Temperature 36.6 C 36.3 C L Pulse Rate 62 63 65 Respiratory Rate 18 18 16 Blood Pressure 129/77 138/65 Pulse Oximetry 100 97 100 09/11/19 11:12 Temperature 36.3 C L Pulse Rate 77 Respiratory Rate 18 Blood Pressure 153/72 H Pulse Oximetry 100 Intake/Output Intake/Output: Intake & Output 09/08/19 09/09/19 09/10/19 09/11/19 23:59 23:59 23:59 23:59 Intake Total 3510 2880 1220 1920 Output Total 3200 1375 1000 2150 Balance 310 1505 220 -230 Meds/Results Medications: Active Medications Generic Name Dose Route Start Last Admin Trade Name Freq PRN Reason Stop Dose Admin Acetaminophen 650 mg 09/06/19 16:44 09/08/19 09:21 Tylenol Tablet PO 650 mg Q4H PRN Administration Mild pain 1-3, Fever Acetaminophen 500 mg 09/10/19 15:34 Tylenol Tablet PO Q6H PRN Mild Pain (1-3) or Fever Hydrocodone Bitart/Acetaminophen 1 tab 09/10/19 15:34 [place] 5-325 Mg PO Q4H PRN Pain Rated 4-6 Hydrocodone Bitart/Acetaminophen 1 tab 09/10/19 15:34 09/10/19 20:47 [place] 7.5-325 Mg PO 1 tab Q4H PRN Administration Pain Rated 7-10 Diphenhydramine HCl 25 mg 09/10/19 15:34 Benadryl Inj IV PUSH Q6H PRN Itching Enoxaparin Sodium 65 mg 09/08/19 21:00 09/09/19 20:15 Lovenox SUB-Q 65 mg Q12HR GILA Administration Enoxaparin Sodium 30 mg 09/10/19 21:00 09/11/19 08:56 Lovenox SUB-Q 30 mg Q12HR GILA Administration Famotidine 20 mg 09/06/19 21:00 09/11/19 08:56 Pepcid Iv IV PUSH 20 mg Q12HR GILA Administration Ciprofloxacin/Dextrose 200 mls @ 200 mls/hr 09/06/19 10:30 09/11/19 09:55 Cipro 400 Mg/D5w 200 Ml IVPB Infused Q12HR GILA Infusion Metronidazole 500 mg in 100 mls @ 100 mls/hr 09/06/19 06:00 09/11/19 06:01 Flagyl 500 Mg/Iso Soln 100 Ml IVPB Infused Q8HR GILA Infusion Lisinopril 20 mg 09/08/19 09:00 09/11/19 08:56 Prinivil PO 20 mg DAILY GILA Administration Melatonin 5 mg 09/08/19 21:00 09/10/19 20:46 Melatonin PO 5 mg HS GILA Administration Morphine Sulfate 1 mg 09/10/19 15:34 Morphine Sulfate Inj IV PUSH Q2H PRN Pain Rated 4-6 Morphine Sulfate 2 mg 09/10/19 15:34
--- NOTE | 2019-09-11 12:49 | WPDGIPROGNO ---
Progress Note: A&P Assessment and Plan (1) Ulcerative colitis: Qualifiers: Ulcerative colitis location: unspecified ulcerative colitis location Digestive disease complication type: unspecified complication Qualified Code(s): K51.919 - Ulcerative colitis, unspecified with unspecified complications Code(s): K51.90 - Ulcerative colitis, unspecified, without complications Status: Acute Assessment and Plan: significantly improved, ok to go home with slow steroid taper (reduce 5 mg each week) and follow up in my office in about 2 weeks, complete 2 more days of abx we will decide when she comes back maintenance medication (imuran, entyvio, etc) (2) Cholelithiasis with chronic cholecystitis: Qualifiers: Cholelithiasis location: gallbladder Biliary obstruction: without biliary obstruction Qualified Code(s): K80.10 - Calculus of gallbladder with chronic cholecystitis without obstruction Code(s): K80.10 - Calculus of gallbladder with chronic cholecystitis without obstruction Status: Chronic Assessment and Plan: lap coby yesterday, good recovery (3) Peroneal DVT (deep venous thrombosis): Qualifiers: Chronicity: acute Laterality: bilateral Qualified Code(s): I82.453 - Acute embolism and thrombosis of peroneal vein, bilateral Code(s): I82.459 - Acute embolism and thrombosis of unspecified peroneal vein Status: Acute Assessment and Plan: resume blood thinners tomorrow by surgery with follow up with pcp Subjective Date/time seen: 09/11/19 12:49 Interval history: no more diarrhea, had normal formed BM. She is recovering from lap coby and tolerating diet. Overall much better Review of Systems Review of Systems: All systems reviewed & are unremarkable except as noted in HPI and below Exam Const: General: comfortable and no acute distress HENMT: General nose exam: Normal nares present Eyes: General: appearance normal, both eyes and all related structures Neck: Neck: no JVD Resp: Auscultation: clear to auscultation bilaterally Cardio: Rate: regular rate Rhythm: regular rhythm GI: Inspection: non-distended GI Palp: Yes Soft to palpation and Yes Tenderness to palpation present (GI) (minimal- from recent lap coby, no rebound) Auscultation: normal bowel sounds Skin: General skin exam: normal color Neuro: General: gait normal Speech: normal speech Extrem: General: edema (trace edema legs) Psych: Mental Status: mental status grossly normal Objective Data Vital Signs Vital Signs: Vital Signs - 24 hr 09/10/19 14:25 09/10/19 14:40 09/10/19 14:55 Temperature 97.6 F Pulse Rate 71 54 L 68 Respiratory Rate 17 13 15 Blood Pressure 119/59 L 116/71 124/68 Pulse Oximetry 99 97 97 09/10/19 15:10 09/10/19 15:15 09/10/19 15:20 Temperature 98.3 F Pulse Rate 70 69 70 Respiratory Rate 14 18 12 Blood Pressure 116/92 H 136/51 L 122/61 Pulse Oximetry 96 100 100 09/10/19 15:45 09/10/19 16:15 09/10/19 18:00 Temperature 98.3 F 97.3 F L 98.3 F Pulse Rate 62 57 L 71 Respiratory Rate 18 18 18 Blood Pressure 126/58 L 134/68 128/63 Pulse Oximetry 100 100 100 09/10/19 22:00 09/10/19 22:29 09/11/19 02:00 Temperature 97.5 F L 97.8 F Pulse Rate 84 66 62 Respiratory Rate 18 20 18 Blood Pressure 144/81 H 129/77 Pulse Oximetry 100 98 100 09/11/19 02:37 09/11/19 06:00 09/11/19 11:12 Temperature 97.4 F L 97.3 F L Pulse Rate 63 65 77 Respiratory Rate 18 16 18 Blood Pressure 138/65 153/72 H Pulse Oximetry 97 100 100 Intake/Output Intake/Output: Intake & Output 09/08/19 09/09/19 09/10/19 09/11/19 23:59 23:59 23:59 23:59 Intake Total 3510 2880 1220 1920 Output Total 3200 1375 1000 2150 Balance 310 1505 220 -230 Meds/Results Medications: Active Medications Generic Name Dose Route Start Last Admin Trade Name Freq PRN Reason Stop Dose Admin Acetaminophen 650 mg 09/06/19 16:44 09/08/19 09:21 Tylenol
[2019-09-18 15:16] LABS: TPMT Activity 15
== END 2019-09-11 13:49 | disposition home or self-care (01) | DRG 357 ==
LOC: ANHED 09-06 00:21 → ANH3MEDSUR 09-06 00:36
PROVIDERS: Internal Medicine Gastroenterology; Physician Assistant; Surgery; Admitting Provider Internal Medicine; Emergency Provider Emergency Medicine; Visit Provider Hospitalist
PROC: 0FT44ZZ Resection of Gallbladder, Percutaneous Endoscopic Approach (ICD-10-PCS; CPT 47562; principal; 2019-09-10 12:00)
DX: K51.90 Ulcerative colitis, unspecified, without complications (principal); I82.453 Acute embolism and thrombosis of peroneal vein, bilateral; E87.1 Hypo-osmolality and hyponatremia; K80.10 Calculus of gallbladder with chronic cholecystitis without obstruction; I82.461 Acute embolism and thrombosis of right calf muscular vein; G47.33 Obstructive sleep apnea (adult) (pediatric); N18.3 Chronic kidney disease, stage 3 (moderate); Z20.828 Contact with and (suspected) exposure to other viral communicable diseases; K21.9 Gastro-esophageal reflux disease without esophagitis; D63.1 Anemia in chronic kidney disease; R05 Cough; E78.5 Hyperlipidemia, unspecified; I12.9 Hypertensive chronic kidney disease with stage 1 through stage 4 chronic kidney disease, or unspecified chronic kidney disease; D50.9 Iron deficiency anemia, unspecified; M81.0 Age-related osteoporosis without current pathological fracture; M19.071 Primary osteoarthritis, right ankle and foot; M79.671 Pain in right foot; J45.909 Unspecified asthma, uncomplicated; Z96.653 Presence of artificial knee joint, bilateral; Z87.891 Personal history of nicotine dependence
CPT/HCPCS: 36415; 71045; 73620; 74177; 76705; 80053; 81001; 82274; 82306; 82550; 82607; 82657; 82728; 82746; 83540; 83550; 83605; 83615; 83735; 83880; 84100; 84466; 84550; 85025; 85027; 85380; 85610; 85730; 86140; 86480; 86704; 86706; 86850; 86900; 86901; 87015; 87040; 87045; 87046; 87269; 87272; 87324; 87340; 87427; 87493; 87635; 87804; 88304; 89055; 93005; 93306; 93970; 96361; 96365; 96366; 96367; 96375; 96376; 97161; 97165; 99285; A9270; C1713; G0378; J0744; J1100; J1170; J1650; J2270; J2405; J2550; J2704; J2710; J2920; J3010; J7030; J7120; J7512; Q9967; U0003

== ENCOUNTER 2019-09-16 07:20 | Outpatient (CLI) | payer MEDICARE, OTHER, SELFPAY ==
[2019-09-16 07:49] LABS: Hematocrit 35.4 % (37.0-47.0); Hemoglobin 10.8 g/dL (12.0-15.0); Mean Corpuscular HGB Conc 30.5 g/dl (32-36); Mean Corpuscular Hemoglobin 24.8 pg (26-34); Mean Corpuscular Volume 81.4 fl (80-100); Mean Platelet Volume 8.5 fl (7.4-10.4); Platelet Count Result 527 k/mm3 (150-375); Red Blood Count 4.35 M/mm3 (4.2-5.4); Red Cell Distribution Width 16.7 % (11.5-14.5)
[2019-09-16 08:04] LABS: Alanine Aminotransferase 13 U/L (4-35); Albumin Level 3.5 g/dL (3.5-5.1); Alkaline Phosphatase 50 U/L (38-126); Aspartate Amino Transferase 20 U/L (14-36); Bilirubin,Total 0.5 mg/dL (0.2-1.3); Blood Urea Nitrogen 17 mg/dL (7-17); Calcium 8.6 mg/dL (8.4-10.2); Carbon Dioxide 35 mmol/L (22-30); Chloride 97 mmol/L (98-107); Estimated Glomerular Filt Rate 54; Glucose 95 mg/dL (65-105); Potassium 4.4 mmol/L (3.4-5.0); Sodium 133 mmol/L (137-145)
== END 2019-09-16 07:21 | disposition home or self-care (01) ==
PROVIDERS: Visit Provider Physician Assistant
DX: I82.459 Acute embolism and thrombosis of unspecified peroneal vein (principal); K80.10 Calculus of gallbladder with chronic cholecystitis without obstruction; K51.90 Ulcerative colitis, unspecified, without complications
CPT/HCPCS: 36415; 80053; 85027

== ENCOUNTER 2019-10-19 23:18 | Observation (INO) | payer MEDICARE, OTHER, SELFPAY ==
--- NOTE | ~2019-10-19 | CT_ITS ---
EXAMINATION: CT brain wo con DATE: 10/20/2019 02:25 INDICATION: Headache. TECHNIQUE: Computed tomography (CT) of the head was performed without intravenous contrast. The mA wa s adjusted according to patient size. Iterative reconstruction technique was employed. The dose-lengt h product was 605.33 mGy-cm. COMPARISON: None FINDINGS: There is no intracranial hemorrhage, acute infarction, or abnormal intracranial mass lesion . The ventricles are normal in size. The orbits are normal. There is mild mucosal thickening in the e thmoid sinuses. The mastoid air cells are normal. IMPRESSION: 1. Normal brain. Reviewed, dictated and finalized at location A. IMPRESSION: 1. Normal brain.
--- NOTE | ~2019-10-19 | XR_ITS ---
EXAMINATION: XR chest 1V portable DATE: 10/20/2019 02:37 INDICATION: Weakness. TECHNIQUE: A single frontal view of the chest was obtained. COMPARISON: Chest single view 09/05/2019, CT abdomen and pelvis 09/05/2019 FINDINGS: Calcified left lung nodules are consistent with old granulomatous disease. There is mild at electasis in the lower lung zones. No pleural effusion or pneumothorax. The heart size is normal. The re is an old healed fracture of proximal right humerus. IMPRESSION: 1. Mild atelectasis in the lower lung zones. Reviewed, dictated and finalized at location A.
[2019-10-19 23:22] VITALS: BP 115/60; PULSE 94; RESP 20; TEMP 38.7; O2SAT 97
[2019-10-20] VITALS (13 sets, daily range): BP systolic 97–137; BP diastolic 45–63; PULSE 70–111; RESP 16–23; TEMP 36.6–37.8; O2SAT 97–100; BMI 21.8
--- NOTE | 2019-10-20 01:34 | ED.HA ---
HPI - Headache General Chief Complaint: Headache Stated Complaint: nausea,MONTERO Time Seen by Provider: 10/20/19 01:23 Source: patient Mode of arrival: ambulatory Limitations: no limitations History of Present Illness HPI Narrative: This patient is a 74 year old female who presents for evaluation of headache . She states today around 530 pm she walked around the park . She states it was about 92 degrees outside. During her walk, she felt really fatigue and developed frontal headache. Her headache has been persitent but it is resolving now. She had nausea but no vomiting. She denies fever or chills at home. She denies chest or shortness of breath. She state she just felt really weak like she over did it walking in the heat. MD elicited complaint: headache Related Data Home Medications Medication Instructions Recorded Confirmed Xiidra 1 drp OPHTHALMIC (EYE) Q12H 09/06/19 10/20/19 albuterol sulfate [ProAir HFA] 2 puff INHALATION QID PRN 09/06/19 10/20/19 atorvastatin 20 mg PO HS 09/06/19 10/20/19 ergocalciferol (vitamin D2) 50,000 unit PO WEEKLY 09/06/19 10/20/19 [Vitamin D2] lisinopril 10 mg PO DAILY 09/06/19 10/20/19 omeprazole 20 mg PO DAILY 09/06/19 10/20/19 apixaban [Eliquis] 5 mg PO BID 10/20/19 10/20/19 prednisone 10 mg PO DAILY 10/20/19 10/20/19 Allergies Allergy/AdvReac Type Severity Reaction Status Date / Time No Known Allergies Allergy Verified 09/27/19 08:45 Review of Systems Review of Systems: All systems reviewed & are unremarkable except as noted in HPI and below Constitutional: Constitutional: Denies chills, Denies fever(s) and Reports weakness Eyes: Eyes: Denies change in vision and Denies photophobia ENT: Denies epistaxis and Denies sore throat Cardiovascular: Cardiovascular: Denies chest pain Respiratory: Respiratory: Denies cough, Denies dyspnea and Denies wheezing Gastrointestinal: Gastrointestinal: Denies abdominal pain, Reports nausea and Denies vomiting Neurologic: Reports headache(s) [facility] Past Medical History Medical History (Updated 10/20/19 @ 08:14 by Brynn Molina MD) Cholelithiasis Chronic kidney disease GERD (gastroesophageal reflux disease) Hyperlipidemia Hyponatremia Iron deficiency anemia Mild intermittent asthma Nausea and vomiting in adult Obstructive sleep apnea Osteoporosis Ulcerative colitis Ulcerative colitis Surgical History Surgical History (Updated 09/06/19 @ 12:11 by Charline Maravilla PA-C) H/O shoulder surgery Right shoulder History of knee replacement Bilateral History of tonsillectomy History of tubal ligation Family History Family History (Updated 09/06/19 @ 16:20 by Charline Maravilla PA-C) Mother , 89 Breast cancer Father Acute myocardial infarction Daughter Crohn's disease Social History Social History (Updated 09/06/19 @ 12:13 by Charline Maravilla PA-C) Social History: Ms. Álvarez lives alone at home with her 2 cats. She has 5 children. She drives and is independent in her ADLs. She designates her daughter, Nancy, as her surrogate decision maker. She would like to be a full code. Smoking packs per day: 0.5 Smoking cigarettes per day: 10.0 Years smoked: 12 Smoking pack-years: 6.00 Smoking status: Former smoker Tobacco type: cigarettes Alcohol intake: former Substance use: never Gender identity (if verbalized by the patient): Female Spiritual care concerns: No Agree to blood products: Yes Exam Narrative: Exam Narrative: GENERAL: Well-appearing, well-nourished, and in no acute distress. HEAD: Normocephalic, atraumatic EYES: PERRLA and EOMI, conjunctiva clear without discharge EARS: TM's clear bilaterally without erythema or dullness NOSE: Nares clear, no rhinorrhea or epistaxis THROAT:Mucous membranes moist, Oropharynx normal without erythema, exudate, peritonsillar swelling or fluctuance NECK: Supple, without lymphadenopathy or mass RESPIRATORY: No res
--- NOTE | 2019-10-20 01:43 | ECG_ITS ---
Measurements Intervals [place] Rate: 80 P: 44 AK: 138 QRS: -11 QRSD: 82 T: 30 QT: 336 QTc: 390 Interpretive Statements SINUS RHYTHM NORMAL ECG Electronically Signed On 10-20-2019 7:27:26 CDT by Boris Romero D.O.
[2019-10-20 02:00] LABS: Basophils Percent Auto 0.4 % (0.2-1.2); Eosinophils Percent Auto 0.8 % (0-4.4); Hematocrit 31.5 % (37.0-47.0); Hemoglobin 9.9 g/dL (12.0-15.0); Immature Granulocyte Absolute 0.01 K/mm3 (0.00-0.031); Immature Granulocyte Percent A 0.4 % (0-0.5); Lymphocytes Absolute Auto 0.78 K/mm3 (0.9-3.2); Lymphocytes Percent Auto 30.2 % (18.3-44.2); Mean Corpuscular HGB Conc 31.4 g/dl (32-36); Mean Corpuscular Hemoglobin 26.4 pg (26-34); Mean Platelet Volume 8.6 fl (7.4-10.4); Monocytes Absolute Auto 0.2 K/mm3 (0.1-0.6); Monocytes Percent Auto 8.5 % (2.6-8.5); Neutrophils Absolute Auto 1.5 K/mm3 (1.3-6.7); Neutrophils Percent Auto 59.7 % (45.5-73.1); Platelet Count Result 198 k/mm3 (150-375); Red Blood Count 3.75 M/mm3 (4.2-5.4); Red Cell Distribution Width 20.3 % (11.5-14.5); White Blood Count 2.6 K/mm3 (4.5-10.0)
[2019-10-20 02:19] LABS: Alanine Aminotransferase 11 U/L (4-35); Albumin Level 3.6 g/dL (3.5-5.1); Alkaline Phosphatase 37 U/L (38-126); Aspartate Amino Transferase 18 U/L (14-36); Bilirubin,Total 0.7 mg/dL (0.2-1.3); Blood Urea Nitrogen 13 mg/dL (7-17); Calcium 8.2 mg/dL (8.4-10.2); Carbon Dioxide 28 mmol/L (22-30); Chloride 97 mmol/L (98-107); Creatine Kinase 21 U/L (30-135); Estimated Glomerular Filt Rate 54; Glucose 91 mg/dL (65-105); Potassium 3.9 mmol/L (3.4-5.0); Sodium 130 mmol/L (137-145)
[2019-10-20] MEDS: SODIUM CHLORIDE 0.9% IV 1,000 ML 999 ML IV CONT (02:49)
[2019-10-20] MEDS: ONDANSETRON INJ 4 MG/2 ML VIAL IV PUSH (02:49)
[2019-10-20 03:36] LABS: Add Urine Microscopic? YES; Appearance Urine Clear (Clear); Bilirubin Urine Negative (Negative); Blood Urine 1+ (Negative); Color Urine Yellow (Yellow); Glucose Urine UA Negative (Negative); Ketones Urine Negative (Negative); Leukocyte Esterase Ur Negative LEU/UL (Negative); Nitrate Urine Negative (Negative); Protein Urine Negative (Negative); Specific Grav Ur 1.014 (1.001-1.035); Squamous Epithelial Cell Urine Occasional /hpf (Few); Urobilinogen Urine Negative mg/dL (<2.0); WBC Urine 0-3 /hpf
--- NOTE | 2019-10-20 06:40 | ADMGEN ---
This patient, Yelitza Álvarez, was admitted to [facility] Surg Room 330-01. Patient/family oriented to hospital policies and general routines including ID bracelet, bed and alarms, visiting hours, pain management, procedures, bathroom and other care routines, personal items, smoking policy, room service/diet, and visiting hours. Valuables list has been completed. Information on how to activate the Rapid Response Team has been discussed. Patient/Family are encouraged to report perceived risks to care and to ask questions if they do not understand what they are told or what they should do.
[2019-10-20] MEDS: ACETAMINOPHEN 500 MG TABLET 1000 MG PO (08:00)
[2019-10-20] MEDS: AZATHIOPRINE 50 MG TABLET PO (09:09)
[2019-10-20] MEDS: lisinopriL 10 MG TABLET PO (09:09)
[2019-10-20] MEDS: PANTOPRAZOLE 40 MG TABLET PO (09:09)
[2019-10-20] MEDS: predniSONE 10 MG TABLET PO (09:09)
--- NOTE | 2019-10-20 14:10 | PM.IMHP ---
H&P: HPI History of Present Illness Chief complaint: leukopenia, weakness Narrative: Yelitza Álvarez is a 74 year old female with PMH significant for ulcerative colitis, DVT recently diagnosed 08/2019 on eliquis, HLD, CKD3, RAUL, hyponatremia, and mild intermittent asthma who presented to the ED for the evaluation of a headache and nausea. She reported that she went for a walk at 5:30 PM last night. She has been walking frequently for exercise. She reported it was very hot outside (92F) and she started to feel very sluggish. She noted the onset of a frontal headache. She reports that she drank less water than she typically does yesterday. She notes that she developed some mild nausea after being in the heat. She reports feeling mildly chilled after being in the heat. She denies any known COVID contacts but she has been out grocery shopping. She denied associated chest pain, palpitations, or SOB. She denied associated dizziness or lightheadedness. She denies any falls or LOC. She was recently hospitalized 09/06/19-09/11/19 for a severe flare of ulcerative colitis. During that admission, she had a cholecystectomy and was diagnosed with bilateral peroneal DVTs. She was started on azathioprine 3 weeks ago per GI and is on eliquis. She reports very infrequent loose stools and states that her diarrhea has almost completely resolved. Her appetite has been better overall and she has been very active. She has been walking 1.25-2.5 miles per day. Initial vitals revealed temperature of 101.7F, pulse rate 94, RR 20, BP 115/60, and pulse oximetry 97%. Initial workup in the ED revealed WBC 2,600, Hb 9.9, Hct 31.5, platelets 198, sodium 130, potassium 3.9, Cl 97, CO2 28, BUN 13, Cr 1.00, LFTs WNL, and CK 21. UA revealed 6-10 RBCs without evidence of UTI. CXR revealed mild atelectasis in the lower lung zones, unchanged from her prior CXR. CT brain was unremarkable with no evidence of hemorrhage, acute infarction, or mass lesion. At the time of my evaluation, she reports that her headache has resolved. She had a very mild headache earlier this AM which resolved with tylenol and reports no recurrence. She denies subjective fever or chills. She has no other complaints at this time. Review of Systems Review of Systems: Narrative: Constitutional:The pt had a fever at presentation 6/ with Tmax 101.7. She denies subjective fever or chills at this time. She denies fatigue and reports her appetite has improved with the treatment of her UC. Eyes: Denies vision change. No additional eye complaints. ENT: Denies change in hearing, nasal congestion, dysphagia, odynophagia, and sore throat. Cardiovascular: Denies palpitations and chest pain. Denies PND and orthopnea. Denies dyspnea on exertion. Respiratory: Denies cough and shortness of breath. Gastrointestinal: Denies abdominal pain, nausea, and vomiting. Denies melena and hematochezia. Genitourinary: Denies dysuria, frequency, urgency, hematuria, and hesitancy. Musculoskeletal: Denies joint pain and swelling. Reports mild swelling in the toes. Denies muscle cramps and weakness. Skin: Denies lesions and wounds. Neurologic: Denies focal weakness, paresthesias, confusion, and speech change. Psychiatric: Denies mood change. Hematologic: Pt is on eliquis. She denies and bleeding or bruising concerns at this time. All systems reviewed & are unremarkable except as noted in HPI and below PMFSH Past Medical History Medical History Cholelithiasis Chronic kidney disease DVT (deep venous thrombosis) GERD (gastroesophageal reflux disease) Hyperlipidemia Hyponatremia Iron deficiency anemia Mild intermittent asthma Nausea and vomiting in adult Obstructive sleep apnea Osteoporosis Ulcerative colitis Surgical History Surgical History H/O shoulder surgery Right shoulder History of cholecystectomy History of knee replacement
[2019-10-20] MEDS: APIXABAN 5 MG TABLET PO (14:51)
[2019-10-20 15:02] LABS: Sodium 132 mmol/L (137-145)
[2019-10-20 17:44] LABS: SARS-CoV-2 RNA PCR Negative
--- NOTE | 2019-10-20 17:49 | PC.NURSE ---
Notified Dr. Selby that patients COVID test was negative. No new orders were obtained.
[2019-10-20] MEDS: ATORVASTATIN 20 MG TABLET PO (22:00)
[2019-10-20 22:24] LABS: Sodium Urine Random 102 meq/L
[2019-10-20 22:30] LABS: Creatinine Urine 73.4 mg/dL
[2019-10-21 00:33] VITALS: PULSE 91; RESP 24; O2SAT 97
[2019-10-21 02:00] VITALS: BP 121/51; PULSE 100; RESP 20; TEMP 37.2; O2SAT 100
[2019-10-21 03:39] VITALS: PULSE 97; RESP 24; O2SAT 99
[2019-10-21 06:00] VITALS: BP 129/66; PULSE 95; RESP 20; TEMP 37.3; O2SAT 98
[2019-10-21 06:09] LABS: Basophils Percent Auto 0.7 % (0.2-1.2); Eosinophils Percent Auto 0.7 % (0-4.4); Hematocrit 30.1 % (37.0-47.0); Hemoglobin 9.5 g/dL (12.0-15.0); Immature Granulocyte Absolute 0.01 K/mm3 (0.00-0.031); Immature Granulocyte Percent A 0.4 % (0-0.5); Lymphocytes Absolute Auto 0.78 K/mm3 (0.9-3.2); Mean Corpuscular HGB Conc 31.6 g/dl (32-36); Mean Corpuscular Hemoglobin 26.6 pg (26-34); Mean Corpuscular Volume 84.3 fl (80-100); Monocytes Absolute Auto 0.2 K/mm3 (0.1-0.6); Monocytes Percent Auto 6.1 % (2.6-8.5); Neutrophils Absolute Auto 1.8 K/mm3 (1.3-6.7); Neutrophils Percent Auto 64.1 % (45.5-73.1); Platelet Count Result 150 k/mm3 (150-375); Red Blood Count 3.57 M/mm3 (4.2-5.4); White Blood Count 2.8 K/mm3 (4.5-10.0)
[2019-10-21 06:24] LABS: Alanine Aminotransferase 11 U/L (4-35); Albumin Level 3.2 g/dL (3.5-5.1); Alkaline Phosphatase 33 U/L (38-126); Aspartate Amino Transferase 19 U/L (14-36); Bilirubin,Total 0.7 mg/dL (0.2-1.3); Blood Urea Nitrogen 13 mg/dL (7-17); Calcium 8.1 mg/dL (8.4-10.2); Carbon Dioxide 27 mmol/L (22-30); Chloride 99 mmol/L (98-107); Estimated CRCL calculation 36 ml/min; Estimated Glomerular Filt Rate 48; Glucose 92 mg/dL (65-105); Potassium 4.1 mmol/L (3.4-5.0); Sodium 130 mmol/L (137-145)
[2019-10-21] MEDS: APIXABAN 5 MG TABLET PO (07:41)
[2019-10-21] MEDS: lisinopriL 10 MG TABLET PO (07:41)
[2019-10-21] MEDS: predniSONE 10 MG TABLET PO (07:41)
[2019-10-21] MEDS: PANTOPRAZOLE 40 MG TABLET PO (07:41)
[2019-10-21] MEDS: AZATHIOPRINE 50 MG TABLET PO (07:41)
[2019-10-21] MEDS: ACETAMINOPHEN 325 MG TABLET 650 MG PO (09:24)
--- NOTE | 2019-10-21 09:56 | PM.DS ---
DS: Admitting Diagnosis Admitting Diagnosis Admitting Diagnosis: Decreased white blood cell count, unspecified DS: Discharge Diagnosis Discharge Diagnosis (1) Heat exhaustion: Qualifiers: Encounter type: initial encounter Qualified Code(s): T67.5XXA - Heat exhaustion, unspecified, initial encounter Code(s): T67.5XXA - Heat exhaustion, unspecified, initial encounter Status: Resolved (2) Headache: Qualifiers: Headache chronicity pattern: acute headache Headache type: tension-type Intractability: not intractable Qualified Code(s): G44.209 - Tension-type headache, unspecified, not intractable Code(s): R51 - Headache Status: Resolved (3) Leukopenia: Qualifiers: Leukopenia type: lymphocytopenia Qualified Code(s): D72.810 - Lymphocytopenia Code(s): D72.819 - Decreased white blood cell count, unspecified Status: Acute (4) Hyponatremia: Code(s): E87.1 - Hypo-osmolality and hyponatremia Status: Acute (5) Peroneal DVT (deep venous thrombosis): Qualifiers: Chronicity: acute Laterality: bilateral Qualified Code(s): I82.453 - Acute embolism and thrombosis of peroneal vein, bilateral Code(s): I82.459 - Acute embolism and thrombosis of unspecified peroneal vein Status: Chronic (6) Ulcerative colitis: Qualifiers: Digestive disease complication type: unspecified complication Ulcerative colitis location: unspecified ulcerative colitis location Qualified Code(s): K51.919 - Ulcerative colitis, unspecified with unspecified complications Code(s): K51.90 - Ulcerative colitis, unspecified, without complications Status: Chronic (7) Mild intermittent asthma: Qualifiers: Asthma complication type: uncomplicated Qualified Code(s): J45.20 - Mild intermittent asthma, uncomplicated Code(s): J45.20 - Mild intermittent asthma, uncomplicated Status: Chronic (8) GERD (gastroesophageal reflux disease): Qualifiers: Esophagitis presence: esophagitis presence not specified Qualified Code(s): K21.9 - Gastro-esophageal reflux disease without esophagitis Code(s): K21.9 - Gastro-esophageal reflux disease without esophagitis Status: Chronic (9) Hyperlipidemia: Qualifiers: Hyperlipidemia type: unspecified Qualified Code(s): E78.5 - Hyperlipidemia, unspecified Code(s): E78.5 - Hyperlipidemia, unspecified Status: Chronic (10) Hypertension: Qualifiers: Hypertension type: essential hypertension Qualified Code(s): I10 - Essential (primary) hypertension Code(s): I10 - Essential (primary) hypertension Status: Chronic DS: Summary Hospital Course Reason for hospitalization: Headache and nausea Hospital Course: Yelitza Álvarez is a 74 year old female with PMH significant for ulcerative colitis, DVT recently diagnosed 08/2019 on eliquis, HLD, CKD3, RAUL, hyponatremia, and mild intermittent asthma who presented to the ED for the evaluation of a headache and nausea after walking out in the heat (92F). She was recently hospitalized 09/06/19-09/11/19 for a severe flare of ulcerative colitis. During that admission, she had a cholecystectomy and was diagnosed with bilateral peroneal DVTs. She was started on azathioprine 3 weeks ago per GI and is on eliquis. Initial workup in the ED revealed WBC 2,600 with lymphopenia (absolute neutrophils WNL), Hb 9.9, Hct 31.5, platelets 198, sodium 130, potassium 3.9, Cl 97, CO2 28, BUN 13, Cr 1.00, LFTs WNL, and CK 21. UA revealed 6-10 RBCs without evidence of UTI. CXR revealed mild atelectasis in the lower lung zones, unchanged from her prior CXR. CT brain was unremarkable with no evidence of hemorrhage, acute infarction, or mass lesion. She was admitted for observation. She was treated with IV fluids as she was felt to be dehydrated. Her headache resolved. I discussed her lymphopenia with Dr. Wagoner and he
== END 2019-10-21 09:48 | disposition home or self-care (01) ==
LOC: ANHED 10-20 05:16 → ANH3MEDSUR 10-20 05:26
PROVIDERS: Physician Assistant; Admitting Provider Internal Medicine; Emergency Provider General Practice; PCP Internal Medicine; Visit Provider Family Medicine
DX: T67.5XXA Heat exhaustion, unspecified, initial encounter (principal); G44.209 Tension-type headache, unspecified, not intractable; D72.819 Decreased white blood cell count, unspecified; E87.1 Hypo-osmolality and hyponatremia; I82.453 Acute embolism and thrombosis of peroneal vein, bilateral; K51.919 Ulcerative colitis, unspecified with unspecified complications; G47.33 Obstructive sleep apnea (adult) (pediatric); I12.9 Hypertensive chronic kidney disease with stage 1 through stage 4 chronic kidney disease, or unspecified chronic kidney disease; N18.3 Chronic kidney disease, stage 3 (moderate); J45.20 Mild intermittent asthma, uncomplicated; K21.9 Gastro-esophageal reflux disease without esophagitis; E78.5 Hyperlipidemia, unspecified; R31.29 Other microscopic hematuria; Z79.01 Long term (current) use of anticoagulants; Z79.52 Long term (current) use of systemic steroids
CPT/HCPCS: 36415; 70450; 71045; 80053; 81001; 82550; 82570; 84295; 84300; 85025; 87635; 93005; 96361; 96374; 99285; A9270; C9803; G0378; J2405; J7030; J7512; U0003

== ENCOUNTER 2019-11-08 12:34 | Outpatient (CLI) | payer MEDICARE, OTHER, SELFPAY ==
--- NOTE | 2019-11-08 | ECHO_ITS ---
Patient Info Name: Yelitza Álvarez Age: 74 years : 1945 Gender: Female Ht: 66 in Wt: 137 lbs BSA: 1.70 m2 HR: 87 bpm BP: 124 / 70 mmHg Technical Quality: Good Exam Date: 11/08/2019 1:03 PM Exam Location: [facility] Patient Status: Outpatient Admit Date: 11/08/2019 Staff Ordering Physician: Jeronimo, Luis A Rosas MD Button Tacker: Cassandra Quintana RDCS Attending Provider: Jeronimo, Luis A Rosas MD Referring Physician: Lon ALCANTARA; Exam Type: CA echo doppler color flow Study Info Indications R06.02 - Shortness of breath Complete two-dimensional, color flow and Doppler transthoracic echocardiogram is performed. Summary 1. LV size is at upper limits of normal, normal wall thickness, normal LV systolic function, ejection fraction 60-65%; normal diastolic function. Global longitudinal strain-20%. Mild left atrial enlargement. Normal structure of the valves. No significant MR, no aortic stenosis. Trace TR, mild pulmonary hypertension, RVSP 42 mmHg. Left Ventricle Left ventricular chamber dimension is normal. Left ventricular systolic function is normal, estimated at 60-65%. There is no increased left ventricular wall thickness. Left ventricular septal wall motion is normal. The left ventricular diastolic function is normal. Right Ventricle Right ventricular chamber dimension is normal. Right ventricular systolic function is normal. Left Atria Left atrial chamber dimension is mildly enlarged. Right Atria Right atrial chamber dimension is normal. Aortic Valve The aortic valve is trileaflet. There is no aortic valve sclerosis. There is no aortic valve stenosis. There is no aortic valve regurgitation. Pulmonic Valve The pulmonic valve is normal. There is trace pulmonic regurgitation. Mitral Valve The mitral valve has normal leaflets. There is no mitral valve stenosis. There is no mitral valve regurgitation. Tricuspid Valve The tricuspid valve leaflets are normal. There is trace tricuspid valve regurgitation. Mild pulmonary hypertension, estimated pulmonary arterial systolic pressure is 42 mmHg. Pericardium/Pleural The pericardium appears normal. There is trivial pericardial effusion. Inferior Vena Cava Normal inferior vena cava with >50% collapse upon inspiration consistent with normal right atrial pressure, 10 mmHg. Aorta The aortic root size at the sinus of Valsalva is normal. The prox ascending aorta size is normal. Left Ventricular Outflow Tract Name Value Normal LVOT 2D LVOT Diameter 2.0 cm LVOT Doppler LVOT Peak Gradient 6 mmHg LVOT Mean Gradient 3 mmHg LVOT VTI 24 cm LVOT VTI/AV VTI Ratio 0.8 LVOT Stroke Volume 71 ml LVOT CO 5.7 l/min LVOT CI 3.3 l/min/m2 Pulmonic Valve Name Value Normal
== END 2019-11-08 12:35 | disposition home or self-care (01) ==
PROVIDERS: Visit Provider Internal Medicine Pulmonary Disease
DX: R06.02 Shortness of breath (principal)
CPT/HCPCS: 93306

== ENCOUNTER 2019-11-24 12:06 | Outpatient (CLI) | payer MEDICARE, OTHER, SELFPAY ==
[2019-11-24 12:25] LABS: Basophils Absolute Auto 0.1 K/mm3 (0.0-0.1); Basophils Percent Auto 1.2 % (0.2-1.2); Eosinophils Absolute Auto 0.1 K/mm3 (0-0.3); Eosinophils Percent Auto 2.4 % (0-4.4); Hematocrit 30.6 % (37.0-47.0); Hemoglobin 9.5 g/dL (12.0-15.0); Immature Granulocyte Absolute 0.01 K/mm3 (0.00-0.031); Immature Granulocyte Percent A 0.2 % (0-0.5); Lymphocytes Percent Auto 31.1 % (18.3-44.2); Mean Corpuscular Hemoglobin 27.5 pg (26-34); Mean Corpuscular Volume 88.7 fl (80-100); Mean Platelet Volume 8.8 fl (7.4-10.4); Monocytes Absolute Auto 0.3 K/mm3 (0.1-0.6); Monocytes Percent Auto 7.4 % (2.6-8.5); Neutrophils Absolute Auto 2.4 K/mm3 (1.3-6.7); Neutrophils Percent Auto 57.7 % (45.5-73.1); Platelet Count Result 330 k/mm3 (150-375); Red Blood Count 3.45 M/mm3 (4.2-5.4); White Blood Count 4.2 K/mm3 (4.5-10.0)
[2019-11-24 12:34] LABS: Alanine Aminotransferase 10 U/L (4-35); Albumin Level 3.9 g/dL (3.5-5.1); Alkaline Phosphatase 50 U/L (38-126); Aspartate Amino Transferase 24 U/L (14-36); Bilirubin,Total 0.4 mg/dL (0.2-1.3); Blood Urea Nitrogen 16 mg/dL (7-17); CRP < 0.5 mg/dL (<1.0); Carbon Dioxide 32 mmol/L (22-30); Chloride 98 mmol/L (98-107); Estimated Glomerular Filt Rate 54; Glucose 102 mg/dL (65-105); Sodium 138 mmol/L (137-145)
[2019-11-24 12:51] LABS: Erythrocyte Sedimentation Rate > 140 mm/hr (0-20)
== END 2019-11-24 12:07 | disposition home or self-care (01) ==
PROVIDERS: Visit Provider Internal Medicine Gastroenterology
DX: K51.919 Ulcerative colitis, unspecified with unspecified complications (principal)
CPT/HCPCS: 36415; 80053; 85025; 85652; 86140

== ENCOUNTER 2020-06-07 08:33 | Outpatient (CLI) | payer MEDICARE, OTHER, SELFPAY ==
--- NOTE | ~2020-06-07 | MM_ITS ---
EXAMINATION: MM screening maru BI w jenna HISTORY: Screening mammogram TECHNIQUE: Craniocaudal and mediolateral oblique 3-D tomosynthesis images were obtained and synthetic 2-D images were generated. CAD analysis was submitted and interpreted. COMPARISON: , 04/29/2018, 1120 bilateral digital screening mammogram examinations BREAST PARENCHYMAL COMPOSITION: There are scattered areas of fibroglandular density. FINDINGS: Occasional benign calcifications. There is no evidence of suspicious mass, calcification, o r architectural distortion to suggest malignancy in either breast. There has been no suspicious inter karlie change. IMPRESSION: 1. No mammographic evidence of malignancy. 2. Recommend routine screening mammography in one year. BI-RADS Category 2: Benign finding(s). Reviewed, dictated and finalized at location A. TRACK KENNEL MANAGER
== END 2020-06-07 08:34 | disposition home or self-care (01) ==
LOC: ANHIMG 08:37
DX: Z12.31 Encounter for screening mammogram for malignant neoplasm of breast (principal)
CPT/HCPCS: 77063; 77067

== ENCOUNTER 2020-06-23 13:43 | Outpatient (CLI) | payer MEDICARE, OTHER, SELFPAY ==
--- NOTE | 2020-06-23 | ECHO_ITS ---
Patient Info Name: Yelitza Álvarez Age: 75 years : 1945 Gender: Female Ht: 65 in Wt: 155 lbs BSA: 1.81 m2 HR: 70 bpm BP: 146 / 69 mmHg Heart Rhythm: Sinus Rhythm Technical Quality: Good Exam Date: 06/23/2020 2:30 PM Exam Location: [facility] Patient Status: Outpatient Admit Date: 06/23/2020 Staff Ordering Physician: Lon, Luis A Rosas MD Fish Butcher: Ronald Mancilla RDCS Attending Provider: Lon, Luis A Rosas MD Referring Physician: Lon ALCANTARA; Exam Type: CA echo doppler color flow Study Info Indications R06.02 - Shortness of breath Complete two-dimensional, color flow and Doppler transthoracic echocardiogram is performed. Strain analysis performed. History/Risk Factors Shortness of breath, HTN. Summary 1. Complete two-dimensional, color flow and Doppler transthoracic echocardiogram is performed. 2. Left ventricular chamber dimension is normal. 3. Left ventricular systolic function is normal, estimated at 55-60%. 4. There is mildly increased left ventricular wall thickness. 5. The left ventricular diastolic function is grade I diastolic dysfunction. 6. E/e' 11 is mildly elevated. 7. Global longitudinal strain is normal at -18.1%. 8. Left atrial chamber dimension is mildly enlarged. 9. There is trace tricuspid valve regurgitation. 10. No pulmonary hypertension, estimated pulmonary arterial systolic pressure is 29 mmHg. Left Ventricle E/e' 11 is mildly elevated. Global longitudinal strain is normal at -18.1%. Left ventricular chamber dimension is normal. Left ventricular systolic function is normal, estimated at 55-60%. There is mildly increased left ventricular wall thickness. The left ventricular diastolic function is grade I diastolic dysfunction. Right Ventricle Right ventricular chamber dimension is normal. Right ventricular systolic function is normal. Left Atria Left atrial chamber dimension is mildly enlarged. Right Atria Right atrial chamber dimension is normal. Aortic Valve The aortic valve is trileaflet. There is no aortic valve stenosis. There is no aortic valve regurgitation. Pulmonic Valve There is no pulmonic regurgitation. Mitral Valve There is no mitral valve stenosis. There is no mitral valve regurgitation. Tricuspid Valve There is trace tricuspid valve regurgitation. No pulmonary hypertension, estimated pulmonary arterial systolic pressure is 29 mmHg. Pericardium/Pleural There is no pericardial effusion. Inferior Vena Cava Normal inferior vena cava with >50% collapse upon inspiration consistent with normal right atrial pressure, 5 mmHg. Aorta The aortic root size at the sinus of Valsalva is normal. Left Ventricular Outflow Tract Name Value Normal LVOT 2D LVOT Diameter 1.9 cm LVOT Doppler LVOT Peak Gradient 5 mmHg LVOT Mean Gradient 3 mmHg LVOT VTI 24 cm LVOT VTI/AV VTI Ratio 0.8 LVOT Stroke Volume 73 ml LVOT CO 4.
== END 2020-06-23 13:44 | disposition home or self-care (01) ==
PROVIDERS: Visit Provider Internal Medicine Pulmonary Disease
DX: R06.02 Shortness of breath (principal)
CPT/HCPCS: 93306

== ENCOUNTER → 2020-10-20 02:56 | Outpatient (CLI) | payer MEDICARE, OTHER, SELFPAY ==
[2020-10-20 18:15] LABS: SARS-CoV-2 RNA PCR Negative
== END ==
PROVIDERS: Visit Provider Internal Medicine Gastroenterology
DX: Z01.812 Encounter for preprocedural laboratory examination (principal); Z20.822 Contact with and (suspected) exposure to COVID-19
CPT/HCPCS: C9803; U0003; U0005

== ENCOUNTER 2020-10-23 01:17 | Day surgery (SDC) | payer MEDICARE, OTHER, SELFPAY ==
[2020-10-10 14:55] VITALS: BMI 26.3
[2020-10-23 09:05] VITALS: BP 149/69; PULSE 64; RESP 18; TEMP 36.5; O2SAT 100
[2020-10-23] MEDS: LACTATED RINGERS 1,000 ML 150 ML IV CONT (09:12)
--- NOTE | 2020-10-23 09:39 | WPDANESEPPF ---
Anes - Initial Pre Proc Eval Procedure: Operation Date: 10/23/20 10:00 Proposed Procedures p Colonoscopy - Garcia Otoole MD Date/Time: 10/23/20 09:39 Surgeon: Garcia Otoole MD Pre Op Diagnosis: Ulcerative Colitis Patient Data Age: 75 Gender: F Height: 1.68 m Weight: 74.8 kg Last Vital Signs Temp 36.5 C 10/23/20 09:05 Pulse 64 10/23/20 09:05 Resp 18 10/23/20 09:05 BP 149/69 H 10/23/20 09:05 Pulse Ox 100 10/23/20 09:05 Allergies Allergy/AdvReac Type Severity Reaction Status Date / Time No Known Allergies Allergy Verified 10/23/20 09:03 Home Medications Medication Instructions Recorded Confirmed Type Xiidra 1 drp OPHTHALMIC (EYE) Q12H 09/06/19 10/23/20 History albuterol sulfate [ProAir HFA] 2 puff INHALATION QID PRN 09/06/19 10/23/20 History atorvastatin 20 mg PO HS 09/06/19 10/23/20 History ergocalciferol (vitamin D2) 50,000 unit PO WEEKLY 09/06/19 10/23/20 History [Vitamin D2] lisinopril 10 mg PO DAILY 09/06/19 10/23/20 History omeprazole 20 mg PO DAILY 09/06/19 10/23/20 History Eliquis 5 mg PO BID 10/20/19 10/23/20 History azathioprine [Imuran] 50 mg EVERY OTHER DAY 10/10/20 10/23/20 History sulfasalazine 500 mg tablet 0.5 g PO BID 30 Days #60 tablet 10/11/20 10/23/20 Rx Patient hx anesthesia problems: none Family hx anesthesia problems: none PMFSH Past Medical History Medical History Anemia Cholelithiasis Chronic diarrhea Chronic kidney disease DVT (deep venous thrombosis) GERD (gastroesophageal reflux disease) Hyperlipidemia Hyponatremia Iron deficiency anemia Microscopic hematuria Mild intermittent asthma Nausea and vomiting in adult Obstructive sleep apnea Osteoporosis Ulcerative colitis Surgical History Surgical History H/O shoulder surgery Right shoulder History of cholecystectomy History of knee replacement Bilateral History of tonsillectomy History of tubal ligation Family History Family History Mother , 89 Breast cancer Father Acute myocardial infarction Daughter Crohn's disease Social History Social History Social History: Ms. Álvarez lives alone at home with her 2 cats. She has 5 children. She drives and is independent in her ADLs. She designates her daughter, Halle Álvarez, as her surrogate decision maker. She wishes to be a full code. She is a former smoker. Smoking packs per day: 0.5 Smoking cigarettes per day: 10.0 Years smoked: 12 Smoking pack-years: 6.00 Smoking status: Former smoker Tobacco type: cigarettes Alcohol intake: former Substance use: never Substance use type: does not use Living arrangements: alone Gender identity (if verbalized by the patient): Female Sexual Orientation (if Verbalized by the Patient): Straight or Heterosexual Spiritual care concerns: No Agree to blood products: Yes Anes - Eval Final PreProcedure Day of Procedure 10/23/20 09:39 Patient weight: obese Heart: regular rate and rhythm Lungs: clear to auscultation and normal air movement Airway: Mallampati scale class II Neurological: alert and oriented Last oral intake: >/= 8 hours ASA classification: III Emergent: no Anesthetic plan: proceed Anesthesia type and monitoring: general GIVS Informed Consent: The patient's anesthetic plan and its attendant risks and benefits were discussed with the patient/family/POA. Questions were solicited and answers provided to the satisfaction of the patient/family/POA.
--- NOTE | 2020-10-23 09:46 | PM.HPGS ---
History of Present Illness History of Present Illness Consent: Risks, benefits, and alternatives have been discussed and questions answered. Patient agrees to proceed with procedure. Chief complaint: Ulcerative Colitis Narrative: Yelitza Álvarez is a 75 year old female diagnosed with ulcerative colitis 07/2019 on imuran every other day and also sulfasalazine bid, symptoms under control. Review of Systems Constitutional: Constitutional: Denies headache(s) and Denies weakness Eyes: Eyes: Denies blurry vision ENT: Reports Normal hearing present, Denies headache(s) and Denies neck pain Cardiovascular: Cardiovascular: Denies chest pain and Denies dyspnea Respiratory: Respiratory: Denies dyspnea Gastrointestinal: Gastrointestinal: Reports no additional gastrointestinal complaints Genitourinary: Genitourinary: Denies dysuria Musculoskeletal: Musculoskeletal: Denies neck pain Integumentary/Breasts: Skin/Breast: Denies dry skin Neurologic: Reports Normal hearing present, Denies headache(s) and Denies weakness Psychiatric: Psychiatric: Denies anxiety Endocrine: Endocrine: Denies change in body appearance Hematologic/Lymphatic: Hematologic/Lymphatic: Denies easy bleeding Allergic/Immunologic: Allergic/Immunologic: Denies urticaria PMFSH Past Medical History Medical History (Updated 10/23/20 @ 09:47 by Garcia Otoole MD) Anemia Cholelithiasis Chronic diarrhea Chronic kidney disease DVT (deep venous thrombosis) GERD (gastroesophageal reflux disease) Hyperlipidemia Hyponatremia Iron deficiency anemia Microscopic hematuria Mild intermittent asthma Nausea and vomiting in adult Obstructive sleep apnea Osteoporosis Ulcerative colitis Surgical History Surgical History H/O shoulder surgery Right shoulder History of cholecystectomy History of knee replacement Bilateral History of tonsillectomy History of tubal ligation Family History Family History Mother , 89 Breast cancer Father Acute myocardial infarction Daughter Crohn's disease Social History Social History Social History: Ms. Álvraez lives alone at home with her 2 cats. She has 5 children. She drives and is independent in her ADLs. She designates her daughter, Halle Álvarez, as her surrogate decision maker. She wishes to be a full code. She is a former smoker. Smoking packs per day: 0.5 Smoking cigarettes per day: 10.0 Years smoked: 12 Smoking pack-years: 6.00 Smoking status: Former smoker Tobacco type: cigarettes Alcohol intake: former Substance use: never Substance use type: does not use Living arrangements: alone Gender identity (if verbalized by the patient): Female Sexual Orientation (if Verbalized by the Patient): Straight or Heterosexual Spiritual care concerns: No Agree to blood products: Yes Meds Home Medications and Allergies Home Medications Medication Instructions Recorded Confirmed Type Xiidra 1 drp OPHTHALMIC (EYE) Q12H 09/06/19 10/23/20 History albuterol sulfate [ProAir HFA] 2 puff INHALATION QID PRN 09/06/19 10/23/20 History atorvastatin 20 mg PO HS 09/06/19 10/23/20 History ergocalciferol (vitamin D2) 50,000 unit PO WEEKLY 09/06/19 10/23/20 History [Vitamin D2] lisinopril 10 mg PO DAILY 09/06/19 10/23/20 History omeprazole 20 mg PO DAILY 09/06/19 10/23/20 History Eliquis 5 mg PO BID 10/20/19 10/23/20 History azathioprine [Imuran] 50 mg EVERY OTHER DAY 10/10/20 10/23/20 History sulfasalazine 500 mg tablet 0.5 g PO BID 30 Days #60 tablet 10/11/20 10/23/20 Rx Allergies Allergy/AdvReac Type Severity Reaction Status Date / Time No Known Allergies Allergy Verified 10/23/20 09:03 Vital Signs Vital Signs - 24 hr 10/23/20 09:05 Temperature 97.7 F Pulse Rate 64 Respiratory Rate 18 Blood Pressure 1
[2020-10-23 10:11] VITALS: BP 109/58; PULSE 68; RESP 15; O2SAT 99
[2020-10-23 10:21] VITALS: BP 123/59; PULSE 64; RESP 16; O2SAT 100
[2020-10-23 10:31] VITALS: BP 141/75; PULSE 58; RESP 13; O2SAT 100
== END 2020-10-23 10:45 | disposition home or self-care (01) ==
PROVIDERS: Visit Provider Internal Medicine Gastroenterology
PROC: 0DJD8ZZ Inspection of Lower Intestinal Tract, Via Natural or Artificial Opening Endoscopic (ICD-10-PCS; CPT 45378; principal; 2020-10-23 10:00)
DX: K51.90 Ulcerative colitis, unspecified, without complications (principal); K64.8 Other hemorrhoids; Z79.01 Long term (current) use of anticoagulants; E78.5 Hyperlipidemia, unspecified; G47.33 Obstructive sleep apnea (adult) (pediatric); D50.9 Iron deficiency anemia, unspecified; M81.0 Age-related osteoporosis without current pathological fracture; J45.20 Mild intermittent asthma, uncomplicated; Z86.718 Personal history of other venous thrombosis and embolism; Z79.51 Long term (current) use of inhaled steroids; Z87.891 Personal history of nicotine dependence; E66.9 Obesity, unspecified; Z68.26 Body mass index [BMI] 26.0-26.9, adult; K21.9 Gastro-esophageal reflux disease without esophagitis
CPT/HCPCS: 45380; 88305; J2704; J7120

== ENCOUNTER 2021-03-16 12:44 | Outpatient (CLI) | payer MEDICARE, OTHER, SELFPAY ==
--- NOTE | 2021-03-16 | ECHO_ITS ---
Patient Info Name: Yelitza Álvarez Age: 76 years : 1945 Gender: Female Ht: 67 in Wt: 172 lbs BSA: 1.94 m2 HR: 85 bpm BP: 150 / 78 mmHg Technical Quality: Good Exam Date: 03/16/2021 1:24 PM Exam Location: [facility] Patient Status: Outpatient Admit Date: 03/16/2021 Staff Ordering Physician: Jeronimo, Luis A Rosas MD Management Specialist: Halle Alves RDCS Attending Provider: Jeronimo, Luis A Rosas MD Referring Physician: Lon ALCANTARA; Exam Type: CA echo doppler color flow Study Info Indications - SOB PULM HTN Complete two-dimensional, color flow and Doppler transthoracic echocardiogram is performed. Summary 1. Complete two-dimensional, color flow and Doppler transthoracic echocardiogram is performed. 2. Left ventricular chamber dimension is normal. 3. Left ventricular systolic function is normal, estimated at 55-60%. 4. The left ventricular diastolic function is grade I diastolic dysfunction. 5. E/e' 13 is mildly elevated. 6. Left atrial chamber dimension is moderately enlarged. 7. There is mild aortic valve sclerosis. 8. The mitral valve has mildly calcified annulus. 9. There is mild tricuspid valve regurgitation. 10. No pulmonary hypertension, estimated pulmonary arterial systolic pressure is 32 mmHg. Left Ventricle E/e' 13 is mildly elevated. Left ventricular chamber dimension is normal. Left ventricular systolic function is normal, estimated at 55-60%. The left ventricular diastolic function is grade I diastolic dysfunction. Right Ventricle Right ventricular systolic function is normal and with normal TAPSE 2.5 cm. Right ventricular chamber dimension is normal. Left Atria Left atrial chamber dimension is moderately enlarged. Right Atria Right atrial chamber dimension is normal. Aortic Valve The aortic valve is trileaflet. There is mild aortic valve sclerosis. There is no aortic valve stenosis. There is no aortic valve regurgitation. Pulmonic Valve There is no pulmonic regurgitation. Mitral Valve The mitral valve has mildly calcified annulus. There is no mitral valve stenosis. There is no mitral valve regurgitation. Tricuspid Valve There is mild tricuspid valve regurgitation. No pulmonary hypertension, estimated pulmonary arterial systolic pressure is 32 mmHg. Pericardium/Pleural There is no pericardial effusion. Inferior Vena Cava Normal inferior vena cava with >50% collapse upon inspiration consistent with normal right atrial pressure, 5 mmHg. Aorta The aortic root size at the sinus of Valsalva is normal. Left Ventricular Outflow Tract Name Value Normal LVOT 2D LVOT Diameter 2.0 cm LVOT Doppler LVOT Peak Gradient 5 mmHg LVOT Mean Gradient 4 mmHg LVOT VTI 26 cm LVOT VTI/AV VTI Ratio 0.7 LVOT Stroke Volume 78 ml LVOT CO 16.9 l/min LVOT CI 8.7 l/min/m2 Pulmonic Valve
== END 2021-03-16 12:45 | disposition home or self-care (01) ==
PROVIDERS: Visit Provider Internal Medicine Pulmonary Disease
DX: R06.02 Shortness of breath (principal); I51.7 Cardiomegaly; I35.8 Other nonrheumatic aortic valve disorders; I07.1 Rheumatic tricuspid insufficiency
CPT/HCPCS: 93306

== ENCOUNTER 2021-06-26 08:12 | Outpatient (CLI) | payer MEDICARE, OTHER, SELFPAY ==
--- NOTE | ~2021-06-26 | MM_ITS ---
EXAMINATION: MM screening maru BI w jenna HISTORY: Screening TECHNIQUE: Craniocaudal and mediolateral oblique 3-D tomosynthesis images were obtained and synthetic 2-D images were generated. CAD analysis was submitted and interpreted. COMPARISON: Comparison to multiple prior studies sequentially, with oldest reviewed study dated 03/19. BREAST PARENCHYMAL COMPOSITION: There are scattered areas of fibroglandular density. FINDINGS: There are small developing asymmetries in the upper outer quadrant of the right breast and lower outer quadrant of the left breast. There are no suspicious calcifications or architectural dist ortion. IMPRESSION: 1. Developing bilateral breast asymmetries. 2. Additional mammographic views and possible breast ultrasound are recommended. BI-RADS Category 0: Incomplete: Needs additional imaging evaluation. Reviewed, dictated and finalized at location A. WORKER IMPRESSION: 1. Developing bilateral breast asymmetries. 2. Additional mammographic views and possible breast ultrasound are recommended . BI-RADS Category 0: Incomplete: Needs additional imaging evaluation.
== END 2021-06-26 08:13 | disposition home or self-care (01) ==
PROVIDERS: Visit Provider Obstetrics & Gynecology
DX: Z12.31 Encounter for screening mammogram for malignant neoplasm of breast (principal); R92.8 Other abnormal and inconclusive findings on diagnostic imaging of breast
CPT/HCPCS: 77063; 77067

== ENCOUNTER 2021-07-19 13:42 | Outpatient (CLI) | payer MEDICARE, OTHER, SELFPAY ==
--- NOTE | ~2021-07-19 | MMUS_ITS ---
EXAMINATION: MM diagnostic maru BI w jenna, US breast BI limited HISTORY: Bilateral focal asymmetries on screening mammogram TECHNIQUE: Additional 3-D tomosynthesis images of the breasts were performed and synthetic 2-D images were generated. CAD analysis was submitted and interpreted. High resolution limited bilateral breast ultrasound was performed. COMPARISON: 06/26/2021, 06/07/2020, 05/25/2019, 04/29/2018 BREAST PARENCHYMAL COMPOSITION: There are scattered areas of fibroglandular density. FINDINGS: MAMMOGRAPHIC FINDINGS: Left breast: There is a 7 mm oval, circumscribed, equal density mass in the posterior third breast at the 4:00 location 7 cm from the nipple. No suspicious calcification or architectural distortion are identified. Right breast: There is a return to baseline fibroglandular appearance with spot compression of the ri ght breast in the area questioned on screening mammogram. ULTRASOUND: There is no evidence of focal abnormal solid or cystic mass in the vicinity of the mammographic findi ng in question right breast. There is a 6 mm cyst at the 4:00 location 5 cm from the nipple in the le ft breast corresponding to the mammographic finding in question. IMPRESSION: 1. No mammographic or sonographic evidence of malignancy. 2. Recommend routine screening mammography in one year. BI-RADS Category 2: Benign finding(s). Reviewed, dictated and finalized at location A. LRY DIPPER IMPRESSION: 1. No mammographic or sonographic evidence of malignancy. 2. Recommend routine screening mammography in one year. BI-RADS Category 2: Benign finding(s).
== END 2021-07-19 13:43 | disposition home or self-care (01) ==
LOC: ANHIMG 13:44
PROVIDERS: Visit Provider Obstetrics & Gynecology
DX: N60.02 Solitary cyst of left breast (principal); N64.89 Other specified disorders of breast
CPT/HCPCS: 76642; 77062; 77066; G0279